=== PATIENT | male | born 1990 | race Caucasian/White ===

== ENCOUNTER 2019-09-15 08:17 | Outpatient (RCR) | payer SELFPAY ==
[~2019-09-15 08:17] MED LIST: CODE-54 PO; MECL25TA56 PO; MUPI22OI TP; NAPR-243 PO; SULF1TAB35 PO; TRM50T PO
== END 2019-12-14 | disposition home or self-care (01) ==
LOC: ONC 08:17
PROVIDERS: ATTEND Internal Medicine Hematology & Oncology
DX: I82.409 Acute embolism and thrombosis of unspecified deep veins of unspecified lower extremity (principal); M19.91 Primary osteoarthritis, unspecified site; F17.210 Nicotine dependence, cigarettes, uncomplicated
CPT/HCPCS: 99214

== ENCOUNTER 2020-07-04 11:59 | Inpatient (IN) | payer SELFPAY ==
[~2020-07-04] VITALS: Ht 175.3 cm; Wt 86.7 kg
--- NOTE | 2020-07-04 12:42 | ED Lower Extremity ---
General Chief Complaint: Lower Extremity Stated Complaint: LEG PAIN;LEG SWELLING Source: patient Exam Limitations: no limitations History of Present Illness Date Seen by Provider: Jul 04, 2020 Time Seen by Provider: 12:40 Initial Comments To ER with reports of right leg pain and swelling. He has a history of DVT first diagnosed last year, has been on Xarelto since. He ran out 5 days ago, the right leg pain began yesterday and was more intense this morning. No shortness of breath. Onset: yesterday Severity: moderate Pain/Injury Location: right leg Modifying Factors: Worse With Movement Allergies and Home Medications Allergies Coded Allergies: ibuprofen (Unverified Allergy, Unknown, 04/30/15) Patient Home Medication List Home Medication List Reviewed: Yes Review of Systems Constitutional: see HPI EENTM: see HPI Respiratory: no symptoms reported Cardiovascular: no symptoms reported Genitourinary: no symptoms reported Musculoskeletal: see HPI Skin: no symptoms reported Psychiatric/Neurological: No Symptoms Reported Past Diqqjsl-Vtemsw-Fctemo Hx Patient Social History Recent Foreign Travel: No Contact w/Someone Who Travel: No Immunizations Up To Date Tetanus Booster (TDap): Unknown Seasonal Allergies Seasonal Allergies: No Past Medical History Orthopedic Adverse Reaction/Blood Tranf: No Family Medical History No Pertinent Family Hx Physical Exam Vital Signs Vital Signs - First Documented 07/04/20 12:24 Temp 37.8 Pulse 92 Resp 18 B/P (MAP) 123/86 (98) Pulse Ox 98 O2 Delivery Room Air Capillary Refill : Height, Weight, BMI Height: 5'10" Weight: 190lbs. oz. 86.284783bs; BMI Method:Stated General Appearance: WD/WN, no apparent distress HEENT: PERRL/EOMI, normal ENT inspection Respiratory: no respiratory distress, no accessory muscle use Hips: bilateral hip non-tender, bilateral hip normal inspection, bilateral hip normal range of motion Legs: right leg pain, right leg swelling (+1 pitting edema right lower extremity. Strong dorsalis pedis pulse on the right foot), right leg other (bluish discoloration of the right light, albeit very slight. ) Knees: bilateral knee non-tender, bilateral knee normal inspection, bilateral knee normal range of motion, bilateral knee no evidence of injury Ankles: bilateral ankle non-tender, bilateral ankle normal inspection, bilateral ankle normal range of motion Feet: bilateral foot non-tender, bilateral foot normal inspection, bilateral foot normal range of motion Neurologic/Psychiatric: alert, normal mood/affect, oriented x 3 Skin: normal color, warm/dry Progress/Results/Core Measures Results/Orders Lab Results Laboratory Tests Test 07/04/20 12:33 Range/Units White Blood Count 11.7 H 4.3-11.0 10^3/uL Red Blood Count 4.87 4.35-5.85 10^6/uL Hemoglobin 15.4 13.3-17.7 G/DL Hematocrit 45 40-54 % Mean Corpuscular Volume 92 80-99 FL Mean Corpuscular Hemoglobin 32 25-34 PG Mean Corpuscular Hemoglobin Concent 34 32-36 G/DL Red Cell Distribution Width 13.5 10.0-14.5 % Platelet Count 107 L 130-400 10^3/uL Mean Platelet Volume 9.8 7.4-10.4 FL Neutrophils (%) (Auto) 75 42-75 % Lymphocytes (%) (Auto) 11 L 12-44 % Monocytes (%) (Auto) 13 H 0-12 % Eosinophils (%) (Auto) 1 0-10 % Basophils (%) (Auto) 0 0-10 % Neutrophils # (Auto) 8.8 H 1.8-7.8 X 10^3 Lymphocytes # (Auto) 1.3 1.0-4.0 X 10^3 Monocytes # (Auto) 1.5 H 0.0-1.0 X 10^3 Eosinophils # (Auto) 0.1 0.0-0.3 10^3/uL Basophils # (Auto) 0.0 0.0-0.1 10^3/uL Sodium Level 137 135-145 MMOL/L Potassium Level 3.8 3.6-5.0 MMOL/L Chloride Level 103 98-107 MMOL/L Carbon Dioxide Level 19 L 21-32 MMOL/L Anion Gap 15 H 5-14 MMOL/L Blood Urea Nitrogen 10 7-18 MG/DL Creatinine 1.12 0.60-1.30 MG/DL Estimat Glomerular Filtration Rate > 60 BUN/Creatinine Ratio 9 Glucose Level 109 H 70-105 MG/DL Calcium Level 9.0 8.5-10.1 MG/DL My Orders Orders - EVA KRUGER DRIVE AWAY DRIVER Cbc With Automated Diff (07/04/20 12:36) Us Venous Lower Ext Rt (07/04/20 12:36) Basic Metabolic Panel (07/04/20 12:36) Ed Iv/Invasive Line Start (07/04/20 12:36) Hydrocodone/Apap 5/325 Tablet (Lortab 5 (07/04/20 12:45) Ct Angio Chest W (07/04/20 13:45) Iohexol Injection (Omnipaque 350 Mg/Ml 1 (07/04/20 14:00) Received Contrast (Hold Metformin- Contr (07/04/20 14:00) Ns (Ivpb) (Sodium Chloride 0.9% Ivpb Bag (07/04/20 14:00) Heparin Drip 57066 Unit/500ml (Heparin (07/04/20 14:13) Heparin (Bolus Per Protocol) (Heparin (B (07/04/20 14:15) Medications Given in ED Current Medications Medications Dose Ordered Sig/Garret Route Start Time Stop Time Status Last Admin Dose Admin Acetaminophen/ Hydrocodone Bitart 1 tab ONCE ONCE PO 07/04/20 12:45 07/04/20 12:46 DC 07/04/20 12:51 1 TAB Heparin Sodium (Porcine) HEPARIN FULL PROTOC... ONCE ONCE IV 07/04/20 14:15 07/04/20 14:16 DC 07/04/20 14:44 5,000 UNIT Iohexol 75 ml ONCE ONCE IV 07/04/20 14:00 07/04/20 14:01 DC 07/04/20 14:18 77 ML Sodium Chloride 100 ml ONCE ONCE IV 07/04/20 14:00 07/04/20 14:01 DC 07/04/20 14:18 80 ML Vital Signs/I&O 07/04/20 12:24 Temp 37.8 Pulse 92 Resp 18 B/P (MAP) 123/86 (98) Pulse Ox 98 O2 Delivery Room Air Diagnostic Imaging Diagonstic Imaging: Ultrasound Comments NAME: CARIDAD TEJADA MED REC#: [id number] PT STATUS: REG ER : 1990 PHYSICIAN: EVA KRUGER DRIVE AWAY DRIVER ADMIT DATE: 07/04/20/ER Draft Date of Exam:07/04/20 US VENOUS LOWER EXT RT PROCEDURE: US right lower extremity venous. TECHNIQUE: Multiple real-time grayscale images were obtained over the right lower extremity in various projections. Additional spectral analysis and color Doppler duplex images were also obtained. INDICATION: Right leg pain and swelling. FINDINGS: There appears to be significant occlusive DVT throughout the right lower extremity deep venous system. Occlusive thrombus extends from the right common femoral vein to the calf. No fluid collection is identified. IMPRESSION: Extensive occlusive right lower extremity DVT. Dictated on workstation # [id number] Dict: 07/04/20 1356 Trans: 07/04/20 1402 6 [id number] Interpreted by: JOHAN ROSE MD Electronically signed by: Departure Communication (Admissions) 0836-decided to discuss the case with Dr. Alonso from vascular surgery at [facility] regarding whether or not thrombectomy/catheter directed thrombolysis was indicated given the degree of clotting and concern for possible phlegmasia cerulea dolens.. He states that at this point it is not phlegmasia cerulea dolens however he would recommend admission to the hospital for IV heparin for 3 days, if the leg fails to improve or worsens then would consider more aggressive treatment. After the 3 days if he improves we would switch back to his Xarelto. We are able to accomplish that here so I will admit him here. 1450-with Dr. Renee, we'll admit Impression Primary Impression: Right leg DVT Disposition: ADMITTED INPATIENT Condition: Stable Admissions Decision to Admit Reason: Admit from ER (General) Decision to Admit/Date: Jul 04, 2020 Time/Decision to Admit Time: 14:23 Departure-Patient Inst. Referrals: LYNNE JAMISON MD (PCP) Primary Care Physician EVA KRUGER APRN Jul 04, 2020 12:42
--- OUTSIDE RECORDS SUMMARY | 2020-07-04 12:42 | XMS REPORT ---
Author Author Mikey Casas Doctor Organization [facility] Address Unknown Phone Unavailable Care Team Providers Care Verifying Specialist Name Role Phone Migration, Doctor Unavailable Unavailable PROBLEMS Type Condition ICD9-CM Code ZER05-LB Code Onset Dates Condition S tatus SNOMED Code Problem Pain in joint, ankle and foot 719.47 Active 284073024 Problem Pain in joint, forearm 719.43 Active 040584508 Problem Contusion of unspecified site 924.9 Active [id number] ALLERGIES No Information ENCOUNTERS Encounter Location Date Diagnosis [facility] [address] [id number] [address] [place] [phone] Feb, [facility] [address] [id number] [address] [place] [phone] Feb, [facility] [address] [id number] [address] [place] [phone] Aug, [facility] [address] [id number] [address] [place] [phone] Aug, [facility] [address] [id number] [address] [place] [phone] Jul, [facility] [address] [id number] [address] [place] [phone] Jun, [facility] [address] [id number] [address] [place] [phone] Apr, [facility] [address] [id number] [address] [place] [phone] March, [facility] [address] [id number] [address] [place] [phone] Feb, [facility] [address] [id number] [address] [place] [phone] Jan, [facility] [address] [id number] [address] [place] [phone] Jan, [facility] [address] [id number] [address] [place] [phone] Nov, [facility] [address] [id number] [address] [place] [phone] Oct, [facility] [address] [id number] [address] [place] [phone] Oct, [facility] [address] [id number] [address] [place] [phone] Oct, [facility] [address] [id number] [address] [place] [phone] Oct, [facility] [address] [id number] [address] [place] [phone] Oct, [facility] [address] [id number] [address] [place] [phone] Oct, [facility] [address] [id number] [address] [place] [phone] March, IMMUNIZATIONS No Known Immunizations SOCIAL HISTORY Never Assessed REASON FOR VISIT EMR-[facility] [place] PLAN OF CARE VITAL SIGNS MEDICATIONS Unknown Medications RESULTS No Results PROCEDURES No Known procedures INSTRUCTIONS MEDICATIONS ADMINISTERED No Known Medications
--- OUTSIDE RECORDS SUMMARY | 2020-07-04 12:42 | XMS REPORT ---
Author Author Mikey JAMISON Organization [facility] Address [address] [place] [address] Care Team Providers Care Strike Out Machine Operator Name Role Phone LYNNE JAMISON Unavailable PROBLEMS Type Condition ICD9-CM Code KYT64-IC Code Onset Dates Condition S tatus SNOMED Code Problem Mixed bipolar II disorder F31.81 Acti ve 134059565 Problem Acute deep vein thrombosis of left popliteal vein I82.432 Active [id number] Problem Contusion of unspecified site 924.9 Active 681131904 Problem Pain in joint, ankle and foot 719.47 Active 446538448 Problem Pain in joint, forearm 719.43 Active 595305403 Problem Mood disorder F39 Active 254335 05 ALLERGIES No Information ENCOUNTERS Encounter Location Date Diagnosis [facility] [address] [facility] [id number] [address] [place] [phone] Apr, [facility] [address] [facility] [id number] [address] [place] [phone] Jan, [facility] [address] [facility] [id number] [address] [place] [phone] Jan, Mixed bipolar II disorder F3 1.81 and Other custodial (current) drug therapy Z79.899 [facility] [address] [facility] [id number] [address] [place] [phone] Nov, [facility] [address] [facility] [id number] [address] [place] [phone] Nov, [facility] [address] [facility] [id number] [address] [place] [phone] Oct, Mixed bipolar II disorder F3 1.81 [facility] [address] [facility] [id number] [address] [place] [phone] Oct, [facility] [address] [id number] [address] [place] [phone] Sep, Mixed bipolar II disorder F3 1.81 and Other custodial (current) drug therapy Z79.899 [facility] [address] [id number] [address] [place] [phone] Sep, [facility] [address] [id number] [address] [place] [phone] Aug, [facility] [address] [id number] [address] [place] [phone] Aug, Acute deep vein thrombosis o f left popliteal vein I82.432 [facility] [address] [id number] [address] [place] [phone] Aug, [facility] [address] [id number] [address] [place] [phone] Aug, Petechiae R23.3 [facility] [address] [id number] [address] [place] [phone] Aug, [facility] [address] [id number] [address] [place] [phone] Aug, [facility] [address] [id number] [address] [place] [phone] Aug, [facility] [address] [id number] [address] [place] [phone] Aug, Pain of left calf M79.662 an d Acute deep vein thrombosis (DVT) of popliteal vein of left lower extremity I82.432 [facility] [address] [id number] [address] [place] [phone] Jul, Mixed bipolar II disorder F3 1.81 [facility] [address] [id number] [address] [place] [phone] Jun, Mixed bipolar II disorder F3 1.81 [facility] [address] [id number] [address] [place] [phone] Jun, Mixed bipolar II disorder F3 1.81 [facility] [address] [id number] [address] [place] [phone] May, Mixed bipolar II disorder F3 1.81 [facility] [address] [id number] [address] [place] [phone] May, Mixed bipolar II disorder F3 1.81 [facility] [address] [id number] [address] [place] [phone] Apr, Mixed bipolar II disorder F3 1.81 [facility] [address] [id number] [address] [place] [phone] Apr, Mood disorder F39 [facility] [address] [id number] [address] [place] [phone] Feb, [facility] [address] [id number] [address] [place] [phone] Feb, [facility] [address] [id number] [address] [place] [phone] Aug, [facility] [address] [id number] [address] [place] [phone] Aug, [facility] [address] [id number] [address] [place] [phone] Jul, [facility] [address] [id number] [address] [place] [phone] Jun, [facility] [address] [id number] [address] [place] [phone] Apr, [facility] [address] [id number] [address] [place] [phone] March, [facility] [address] [id number] [address] [place] [phone] Feb, [facility] [address] [id number] [address] [place] [phone] Jan, [facility] [address] [id number] [address] [place] [phone] 14 Jan, 2013 [facility] [address] [id number] [address] [place] [phone] Nov, [facility] [address] [id number] [address] [place] [phone] Oct, [facility] [address] [id number] [address] [place] [phone] Oct, [facility] [address] [id number] [address] [place] [phone] Oct, [facility] [address] [id number] [address] [place] [phone] Oct, [facility] [address] [id number] [address] [place] [phone] Oct, [facility] [address] [id number] [address] [place] [phone] Oct, [facility] [address] [id number] [address] [place] [phone] March, IMMUNIZATIONS No Known Immunizations SOCIAL HISTORY Never Assessed REASON FOR VISIT PLAN OF CARE VITAL SIGNS Height 69 in 2014-09-28 Weight 171 lbs 2014-09-28 Temperature 97 degrees Fahrenheit 2014-09-28 Heart Rate 88 bpm 2014-09-28 Respiratory Rate 16 2014-09-28 Blood pressure systolic 124 mmHg 2014-09-28 Blood pressure diastolic 80 mmHg 2014-09-28 MEDICATIONS Unknown Medications RESULTS No Results PROCEDURES Procedure Date Ordered Result Body Site X-RAY EXAM OF HAND Sep 28, 2014 X-RAY EXAM OF WRIST Sep 28, 2014 INSTRUCTIONS MEDICATIONS ADMINISTERED No Known Medications MEDICAL (GENERAL) HISTORY Type Description Date Medical History Mood disorder Surgical History RT wrist ( cyst removal) Surgical History teeth removed
--- OUTSIDE RECORDS SUMMARY | 2020-07-04 12:42 | XMS REPORT ---
Author Author Mikey Casas Doctor Organization [facility] Address Unknown Phone Unavailable Care Team Providers Care Final Block Press Operator Name Role Phone Migration, Doctor Unavailable Unavailable PROBLEMS Type Condition ICD9-CM Code [id number] Code Onset Dates Condition S tatus SNOMED Code Problem Mixed bipolar II disorder F31.81 Acti ve 247781547 Problem Acute deep vein thrombosis of left popliteal vein I82.432 Active [id number] Problem Contusion of unspecified site 924.9 Active 964741650 Problem Pain in joint, ankle and foot 719.47 Active 974094513 Problem Pain in joint, forearm 719.43 Active 209674081 Problem Mood disorder F39 Active 296365 05 ALLERGIES No Information ENCOUNTERS Encounter Location Date Diagnosis [facility] [address] [facility] [id number] [address] [place] [phone] Apr, [facility] [address] [facility] [id number] [address] [place] [phone] Jan, [facility] [address] [facility] [id number] [address] [place] [phone] Jan, Mixed bipolar II disorder F3 1.81 and Other group home (current) drug therapy Z79.899 [facility] [address] [facility] [id number] [address] [place] [phone] Nov, [facility] [address] [facility] [id number] [address] [place] [phone] Nov, [facility] [address] [facility] [id number] [address] [place] [phone] Oct, Mixed bipolar II disorder F3 1.81 [facility] [address] [facility] [id number] [address] [place] [phone] Oct, [facility] [address] [facility] [id number] [address] [place] [phone] Sep, Mixed bipolar II disorder F3 1.81 and 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 therapy Z79.899 [facility] [address] [id number] [address] [place] [phone] Sep, [facility] [address] [id number] [address] [place] [phone] Aug, [facility] [address] [id number] [address] [place] [phone] Aug, Acute deep vein thrombosis o f left popliteal vein I82.432 [facility] [address] [id number] [address] [place] [phone] Aug, [facility] [address] [id number] [address] [place] [phone] Aug, Petechiae R23.3 [facility] [address] [id number] [address] [place] [phone] Aug, [facility] [address] [id number] [address] [place] [phone] Aug, [facility] [address] [id number] [address] [place] [phone] Aug, [facility] [address] [id number] [address] [place] [phone] Aug, Pain of left calf M79.662 an d Acute deep vein thrombosis (DVT) of popliteal vein of left lower extremity I82.432 [facility] [address] [id number] [address] [place] [phone] Jul, Mixed bipolar II disorder F3 1.81 [facility] [address] [id number] [address] [place] [phone] Jun, Mixed bipolar II disorder F3 1.81 [facility] [address] [id number] [address] [place] [phone] Jun, Mixed bipolar II disorder F3 1.81 [facility] [address] [id number] [address] [place] [phone] May, Mixed bipolar II disorder F3 1.81 [facility] [address] [id number] [address] [place] [address], [place] [phone] May, Mixed bipolar II disorder F3 1.81 [facility] [address] [id number] [address] [place] [address], [place] [address] Apr, Mixed bipolar II disorder F3 1.81 [facility] [address] [id number] [address] [place] [address], [place] [address] Apr, Mood disorder F39 [facility] [address] [id number] [address] [place] [address], [place] [phone] Feb, [facility] [address] [id number] [address] [place] [phone] Feb, [facility] [address] [id number] [address] [place] [phone] Aug, [facility] [address] [id number] [address] [place] [phone] Aug, [facility] [address] [id number] [address] [place] [phone] Jul, [facility] [address] [id number] [address] [place] [phone] Jun, [facility] [address] [id number] [address] [place] [phone] Apr, [facility] [address] [id number] [address] [place] [phone] March, [facility] [address] [id number] [address] [place] [phone] Feb, [facility] [address] [id number] [address] [place] [phone] Jan, [facility] [address] [id number] [address] [place] [phone] Jan, [facility] [address] [id number] [address] [place] [phone] Nov, [facility] [address] [id number] [address] [place] [phone] Oct, [facility] [address] [id number] [address] [place] [phone] Oct, [facility] [address] [id number] [address] [place] [phone] Oct, [facility] [address] [id number] [address] [place] [phone] Oct, [facility] [address] [id number] [address] [place] [phone] Oct, [facility] [address] [facility] [id number] [address] [place] [phone] Oct, [facility] [address] [id number] [address] [place] [phone] March, IMMUNIZATIONS No Known Immunizations SOCIAL HISTORY Never Assessed REASON FOR VISIT PLAN OF CARE VITAL SIGNS MEDICATIONS Unknown Medications RESULTS No Results PROCEDURES No Known procedures INSTRUCTIONS MEDICATIONS ADMINISTERED No Known Medications MEDICAL (GENERAL) HISTORY Type Description Date Medical History Mood disorder Surgical History RT wrist ( cyst removal) Surgical History teeth removed
--- OUTSIDE RECORDS SUMMARY | 2020-07-04 12:42 | XMS REPORT ---
Author Author Mikey Casas Doctor Organization [facility] Address Unknown Phone Unavailable Care Team Providers Care Supervisor Rice Milling Name Role Phone Migration, Doctor Unavailable Unavailable PROBLEMS Type Condition ICD9-CM Code NTT82-NU Code Onset Dates Condition S tatus SNOMED Code Problem Pain in joint, ankle and foot 719.47 Active 474629546 Problem Pain in joint, forearm 719.43 Active 913250442 Problem Contusion of unspecified site 924.9 Active 081648726 ALLERGIES No Information ENCOUNTERS Encounter Location Date Diagnosis [facility] [address] [id number] [address] [place] [phone] Feb, [facility] [address] [id number] [address] [place] [phone] Feb, [facility] [address] [id number] [address] [place] [phone] Aug, [facility] [address] [id number] [address] [place] [phone] Aug, [facility] [address] [id number] [address] [place] [phone] Jul, [facility] [address] [id number] [address] [place] [phone] Jun, [facility] [address] [id number] [address] [place] [phone] Apr, [facility] [address] [id number] [address] [place] [phone] March, [facility] [address] [id number] [address] [place] [phone] Feb, [facility] [address] [id number] [address] [place] [phone] Jan, [facility] [address] [id number] [address] [place] [phone] Jan, [facility] [address] [id number] [address] [place] [phone] Nov, [facility] [address] [id number] [address] [place] [phone] Oct, [facility] [address] [id number] [address] [place] [phone] Oct, [facility] [address] [id number] [address] [place] [phone] Oct, [facility] [address] [id number] [address] [place] [phone] Oct, [facility] [address] [id number] [address] [place] [phone] Oct, [facility] [address] [id number] [address] [place] [phone] Oct, [facility] [address] [id number] [address] [place] [phone] March, IMMUNIZATIONS No Known Immunizations SOCIAL HISTORY Never Assessed REASON FOR VISIT EMR-[facility] [place] PLAN OF CARE VITAL SIGNS MEDICATIONS Unknown Medications RESULTS No Results PROCEDURES No Known procedures INSTRUCTIONS MEDICATIONS ADMINISTERED No Known Medications
--- OUTSIDE RECORDS SUMMARY | 2020-07-04 12:42 | XMS REPORT ---
Author Author Mikey Casas Doctor Organization [facility] Address Unknown Phone Unavailable Care Team Providers Care Legal Billing Clerk Name Role Phone Migration, Doctor Unavailable Unavailable PROBLEMS Type Condition ICD9-CM Code SQT68-LO Code Onset Dates Condition S tatus SNOMED Code Problem Pain in joint, forearm 719.43 Active 746635061 Problem Mood disorder F39 Active 670544 05 Problem Contusion of unspecified site 924.9 Active 143697446 Problem Pain in joint, ankle and foot 719.47 Active 028524871 ALLERGIES Substance Reaction Event Type Date Status Ibuprofen Unknown Drug Allergy Feb, Active ENCOUNTERS Encounter Location Date Diagnosis [facility] [address] [facility] [id number] [address] [place] [phone] May, [facility] [address] [facility] [id number] [address] [place] [phone] Apr, Mixed bipolar II disorder F3 1.81 [facility] [address] [facility] [id number] [address] [place] [phone] Apr, Mood disorder F39 [facility] [address] [facility] [id number] [address] [place] [phone] Feb, [facility] [address] [facility] [id number] [address] [place] [phone] Feb, [facility] [address] [facility] [id number] [address] [place] [phone] Aug, [facility] [address] [facility] [id number] [address] [place] [phone] Aug, [facility] [address] [facility] [id number] [address] [place] [phone] Jul, [facility] [address] [facility] [id number] [address] [place] [phone] Jun, [facility] [address] [id number] [address] [place] [phone] Apr, [facility] [address] [id number] [address] [place] [phone] March, [facility] [address] [id number] [address] [place] [phone] Feb, [facility] [address] [id number] [address] [place] [phone] Jan, [facility] [address] [id number] [address] [place] [phone] Jan, [facility] [address] [id number] [address] [place] [phone] Nov, [facility] [address] [id number] [address] [place] [phone] Oct, [facility] [address] [id number] [address] [place] [phone] Oct, [facility] [address] [id number] [address] [place] [phone] Oct, [facility] [address] [id number] [address] [place] [phone] Oct, [facility] [address] [id number] [address] [place] [phone] Oct, [facility] [address] [id number] [address] [place] [phone] Oct, [facility] [address] [id number] [address] [place] [phone] March, IMMUNIZATIONS No Known Immunizations SOCIAL HISTORY Never Assessed REASON FOR VISIT EMR-[facility] [place] PLAN OF CARE VITAL SIGNS MEDICATIONS Unknown Medications RESULTS No Results PROCEDURES No Known procedures INSTRUCTIONS MEDICATIONS ADMINISTERED No Known Medications MEDICAL (GENERAL) HISTORY Type Description Date Medical History Mood disorder Surgical History RT wrist ( cyst removal) Surgical History teeth removed
--- OUTSIDE RECORDS SUMMARY | 2020-07-04 12:42 | XMS REPORT ---
Author Author Mikey Casas Doctor Organization [facility] Address Unknown Phone Unavailable Care Team Providers Care Presser Cotton Ginning Name Role Phone Migration, Doctor Unavailable Unavailable PROBLEMS Type Condition ICD9-CM Code TCV97-LW Code Onset Dates Condition S tatus SNOMED Code Problem Mixed bipolar II disorder F31.81 Acti ve 194268363 Problem Acute deep vein thrombosis of left popliteal vein I82.432 Active 375401109909496 Problem Contusion of unspecified site 924.9 Active 155344321 Problem Pain in joint, ankle and foot 719.47 Active 516319761 Problem Pain in joint, forearm 719.43 Active 146903781 Problem Mood disorder F39 Active 663513 05 ALLERGIES No Information ENCOUNTERS Encounter Location Date Diagnosis [facility] [address] [id number] [address] [place] [phone] Jul, [facility] [address] [facility] [id number] [address] [place] [phone] Apr, [facility] [address] [id number] [address] [place] [phone] Apr, [facility] [address] [facility] [id number] [address] [place] [phone] 08 Apr, 2020 Mixed bipolar II disorder F3 1.81 and Other tank terminal gauger (current) drug therapy Z79.899 [facility] [address] [id number] [address] [place] [phone] Jan, [facility] [address] [facility] [id number] [address] [place] [phone] 02 Jan, 2020 Mixed bipolar II disorder F3 1.81 and Other tank terminal gauger (current) drug therapy Z79.899 [facility] [address] [facility] [id number] [address] [place] [phone] Nov, [facility] [address] [id number] [address] [place] [phone] Nov, [facility] [address] [id number] [address] [place] [phone] Oct, Mixed bipolar II disorder F3 1.81 [facility] [address] [id number] [address] [place] [phone] Oct, [facility] [address] [id number] [address] [place] [phone] Sep, Mixed bipolar II disorder F3 1.81 and Other halfway (current) drug therapy Z79.899 [facility] [address] [id number] [address] [place] [phone] Sep, [facility] [address] [id number] [address] [place] [phone] Aug, [facility] [address] [id number] [address] [place] [phone] Aug, Acute deep vein thrombosis o f left popliteal vein I82.432 [facility] [address] [id number] [address] [place] [phone] Aug, [facility] [address] [id number] [address] [place] [phone] Aug, Petechiae R23.3 [facility] [address] [id number] [address] [place] [phone] Aug, [facility] [address] [id number] [address] [place] [phone] Aug, [facility] [address] [id number] [address] [place] [phone] Aug, [facility] [address] [id number] [address] [place] [phone] Aug, Pain of left calf M79.662 an d Acute deep vein thrombosis (DVT) of popliteal vein of left lower extremity I82.432 [facility] [address] [id number] [address] [place] [phone] Jul, Mixed bipolar II disorder F3 1.81 [facility] [address] [id number] [address] [place] [phone] Jun, Mixed bipolar II disorder F3 1.81 [facility] [address] [id number] [address] [place] [phone] Jun, Mixed bipolar II disorder F3 1.[address] [facility] [address] [id number] [address] [place] [phone] May, Mixed bipolar II disorder F3 1.81 [facility] [address] [id number] [address] [place] [phone] May, Mixed bipolar II disorder F3 1.81 [facility] [address] [id number] [address] [place] [phone] Apr, Mixed bipolar II disorder F3 1.81 [facility] [address] [id number] [address] [place] [phone] Apr, Mood disorder F39 [facility] [address] [id number] [address] [place] [phone] Feb, [facility] [address] [id number] [address] [place] [phone] Feb, [facility] [address] [id number] [address] [place] [phone] Aug, [facility] [address] [id number] [address] [place] [phone] Aug, [facility] [address] [id number] [address] [place] [phone] Jul, [facility] [address] [id number] [address] [place] [phone] Jun, [facility] [address] [id number] [address] [place] [phone] Apr, [facility] [address] [id number] [address] [place] [phone] March, [facility] [address] [id number] [address] [place] [phone] Feb, [facility] [address] [id number] [address] [place] [phone] Jan, [facility] [address] [id number] [address] [place] [phone] Jan, [facility] [address] [id number] [address] [place] [phone] Nov, [facility] [address] [id number] [address] [place] [phone] Oct, [facility] [address] [id number] [address] [place] [phone] Oct, [facility] [address] [id number] [address] [place] [phone] Oct, [facility] [address] [id number] [address] [place] [phone] Oct, [facility] [address] [id number] [address] [place] [phone] Oct, [facility] [address] [id number] [address] [place] [phone] Oct, [facility] [address] [id number] [address] [place] [phone] March, IMMUNIZATIONS No Known Immunizations SOCIAL HISTORY Never Assessed REASON FOR VISIT PLAN OF CARE VITAL SIGNS MEDICATIONS Unknown Medications RESULTS No Results PROCEDURES No Known procedures INSTRUCTIONS MEDICATIONS ADMINISTERED No Known Medications MEDICAL (GENERAL) HISTORY Type Description Date Medical History Mood disorder Surgical History RT wrist ( cyst removal) Surgical History teeth removed
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
--- OUTSIDE RECORDS SUMMARY | 2020-07-04 12:42 | XMS REPORT ---
Author Author Mikey Casas Doctor Organization [facility] Address Unknown Phone Unavailable Care Team Providers Care Talent Consultant Name Role Phone Migration, Doctor Unavailable Unavailable PROBLEMS Type Condition ICD9-CM Code SDC43-NW Code Onset Dates Condition S tatus SNOMED Code Problem Mixed bipolar II disorder F31.81 Acti ve 126996142 Problem Acute deep vein thrombosis of left popliteal vein I82.432 Active 183321933285915 Problem Contusion of unspecified site 924.9 Active 580098959 Problem Pain in joint, ankle and foot 719.47 Active 511069452 Problem Pain in joint, forearm 719.43 Active 104544247 Problem Mood disorder F39 Active 566347 05 ALLERGIES No Information ENCOUNTERS Encounter Location Date Diagnosis [facility] [address] [id number] [address] [place] [phone] 09 Jul, 2020 [facility] [address] [id number] [address] [place] [phone] Apr, [facility] [address] [id number] [address] [place] [phone] Apr, [facility] [address] [id number] [address] [place] [phone] 08 Apr, 2020 Mixed bipolar II disorder F3 1.81 and Other dedicated intermodal truck driver (current) drug therapy Z79.899 [facility] [address] [id number] [address] [place] [phone] Jan, [facility] [address] [id number] [address] [place] [phone] 02 Jan, 2020 Mixed bipolar II disorder F3 1.81 and Other dedicated intermodal truck driver (current) drug therapy Z79.899 [facility] [address] [id number] [address] [place] [phone] Nov, [facility] [address] [id number] [address] [place] [address] Nov, [facility] [address] [id number] [address] [place] [phone] Oct, Mixed bipolar II disorder F3 1.81 [facility] [address] [id number] [address] [place] [address] Oct, [facility] [address] [id number] [address] [place] [phone] Sep, Mixed bipolar II disorder F3 1.81 and Other snf (current) drug therapy Z79.899 [facility] [address] [id number] [address] [place] [address] Sep, [facility] [address] [id number] [address] [place] [phone] Aug, [facility] [address] [id number] [address] [place] [address] Aug, Acute deep vein thrombosis o f left popliteal vein I82.432 [facility] [address] [id number] [address] [place] [address] Aug, [facility] [address] [id number] [address] [place] [address] Aug, Petechiae R23.3 [facility] [address] [id number] [address] [place] [phone] Aug, [facility] [address] [id number] [address] [place] [phone] Aug, [facility] [address] [id number] [address] [place] [phone] Aug, [facility] [address] [id number] [address] [place] [address] Aug, Pain of left calf M79.662 an d Acute deep vein thrombosis (DVT) of popliteal vein of left lower extremity I82.432 [facility] [address] [id number] [address] [place] [address] Jul, Mixed bipolar II disorder F3 1.81 [facility] [address] [id number] [address] [place] [id number] Jun, Mixed bipolar II disorder F3 1.81 [facility] [address] [id number] [address] [place] [phone] Jun, Mixed bipolar II disorder F3 1.81 [facility] [address] [id number] [address] [place] [address] May, Mixed bipolar II disorder F3 1.81 [facility] [address] [id number] [address] [place] [phone] May, Mixed bipolar II disorder F3 1.81 [facility] [address] [id number] [address] [place] [address] Apr, Mixed bipolar II disorder F3 1.81 [facility] [address] [id number] [address] [place] [address] Apr, Mood disorder F39 [facility] [address] [id number] [address] [place] [phone] Feb, [facility] [address] [id number] [address] [place] [phone] Feb, [facility] [address] [id number] [address] [place] [phone] Aug, [facility] [address] [id number] [address] [place] [phone] Aug, [facility] [address] [id number] [address] [place] [phone] Jul, [facility] [address] [id number] [address] [place] [phone] Jun, [facility] [address] [id number] [address] [place] [phone] Apr, [facility] [address] [id number] [address] [place] [id number] March, [facility] [address] [id number] [address] [place] [phone] Feb, [facility] [address] [id number] [address] [place] [phone] Jan, [facility] [address] [id number] [address] [place] [phone] Jan, [facility] [address] [id number] [address] [place] [phone] Nov, [facility] [address] [id number] [address] [place] [phone] Oct, [facility] [address] [id number] [address] [place] [phone] Oct, [facility] [address] [id number] [address] [place] [phone] Oct, [facility] [address] [id number] [address] [place] [phone] Oct, [facility] [address] [id number] [address] [place] [address] Oct, [facility] [address] [id number] [address] [place] [phone] Oct, [facility] [address] [id number] [address] [place] [address] March, IMMUNIZATIONS No Known Immunizations SOCIAL HISTORY Never Assessed REASON FOR VISIT PLAN OF CARE VITAL SIGNS MEDICATIONS Unknown Medications RESULTS No Results PROCEDURES No Known procedures INSTRUCTIONS MEDICATIONS ADMINISTERED No Known Medications MEDICAL (GENERAL) HISTORY Type Description Date Medical History Mood disorder Surgical History RT wrist ( cyst removal) Surgical History teeth removed
--- OUTSIDE RECORDS SUMMARY | 2020-07-04 12:42 | XMS REPORT ---
Author Author Mikey Casas Doctor Organization [facility] Address Unknown Phone Unavailable Care Team Providers Care Teacher Specialist Name Role Phone Migration, Doctor Unavailable Unavailable PROBLEMS Type Condition ICD9-CM Code [id number] Code Onset Dates Condition S tatus SNOMED Code Problem Mixed bipolar II disorder F31.81 Acti ve 446359101 Problem Acute deep vein thrombosis of left popliteal vein I82.432 Active 177034214938507 Problem Contusion of unspecified site 924.9 Active 630868167 Problem Pain in joint, ankle and foot 719.47 Active 574306001 Problem Pain in joint, forearm 719.43 Active 847315400 Problem Mood disorder F39 Active 798949 05 ALLERGIES No Information ENCOUNTERS Encounter Location Date Diagnosis [facility] [address] [facility] [id number] [address] [place] [phone] Apr, [facility] [address] [facility] [id number] [address] [place] [id number] Jan, [facility] [address] [facility] [id number] [address] [place] [phone] Jan, Mixed bipolar II disorder F3 1.81 and Other prison (current) drug therapy Z79.899 [facility] [address] [facility] [id number] [address] [place] [phone] Nov, [facility] [address] [facility] [id number] [address] [place] [phone] Nov, [facility] [address] [facility] [id number] [address] [place] [phone] Oct, Mixed bipolar II disorder F3 1.81 [facility] [address] [facility] [id number] [address] [place] [address] Oct, [facility] [address] [facility] [id number] [address] [place] [phone] Sep, Mixed bipolar II disorder F3 1.81 and 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 [facility] [address] [id number] [address] [place] [address] Sep, [facility] [address] [id number] [address] [place] [phone] Aug, [facility] [address] [id number] [address] [place] [address] Aug, Acute deep vein thrombosis o f left popliteal vein I82.432 [facility] [address] [id number] [address] [place] [phone] Aug, [facility] [address] [id number] [address] [place] [address] Aug, Petechiae R23.3 [facility] [address] [id number] [address] [place] [address] Aug, [facility] [address] [id number] [address] [place] [address] Aug, [facility] [address] [id number] [address] [place] [phone] Aug, [facility] [address] [id number] [address] [place] [address] Aug, Pain of left calf M79.662 an d Acute deep vein thrombosis (DVT) of popliteal vein of left lower extremity I82.432 [facility] [address] [id number] [address] [place] [address] Jul, Mixed bipolar II disorder F3 1.81 [facility] [address] [id number] [address] [place] [address] Jun, Mixed bipolar II disorder F3 1.81 [facility] [address] [id number] [address] [place] [address] Jun, Mixed bipolar II disorder F3 1.81 [facility] [address] [id number] [address] [place] [address] May, Mixed bipolar II disorder F3 1.81 [facility] [address] [id number] [address] [place] [address], [place] [address] May, Mixed bipolar II disorder F3 1.81 [facility] [address] [id number] [address] [place] [address], [place] [address] Apr, Mixed bipolar II disorder F3 1.81 [facility] [address] [id number] [address] [place] [address], [place] [address] Apr, Mood disorder F39 [facility] [address] [id number] [address] [place] [address], [place] [address] Feb, [facility] [address] [id number] [address] [place] [phone] Feb, [facility] [address] [id number] [address] [place] [address] Aug, [facility] [address] [id number] [address] [place] [phone] Aug, [facility] [address] [id number] [address] [place] [phone] Jul, [facility] [address] [id number] [address] [place] [address] Jun, [facility] [address] [id number] [address] [place] [address] Apr, [facility] [address] [id number] [address] [place] [address] March, [facility] [address] [id number] [address] [place] [address] Feb, [facility] [address] [id number] [address] [place] [address] Jan, [facility] [address] [id number] [address] [place] [address] Jan, [facility] [address] [id number] [address] [place] [phone] Nov, [facility] [address] [id number] [address] [place] [address] Oct, [facility] [address] [id number] [address] [place] [address] Oct, [facility] [address] [id number] [address] [place] [phone] Oct, [facility] [address] [id number] [address] [place] [address] Oct, [facility] [address] [id number] [address] [place] [id number] Oct, [facility] [address] [id number] [address] [place] [phone] Oct, [facility] [address] [id number] [address] [place] [address] March, IMMUNIZATIONS No Known Immunizations SOCIAL HISTORY Never Assessed REASON FOR VISIT PLAN OF CARE VITAL SIGNS Blood pressure systolic 120 mmHg 2013-08-04 Blood pressure diastolic 64 mmHg 2013-08-04 MEDICATIONS Unknown Medications RESULTS No Results PROCEDURES No Known procedures INSTRUCTIONS MEDICATIONS ADMINISTERED No Known Medications MEDICAL (GENERAL) HISTORY Type Description Date Medical History Mood disorder Surgical History RT wrist ( cyst removal) Surgical History teeth removed
--- OUTSIDE RECORDS SUMMARY | 2020-07-04 12:42 | XMS REPORT ---
Author Author Mikey Casas Doctor Organization [facility] Address Unknown Phone Unavailable Care Team Providers Care Reference Assistant Name Role Phone Migration, Doctor Unavailable Unavailable PROBLEMS Type Condition ICD9-CM Code UPZ01-GQ Code Onset Dates Condition S tatus SNOMED Code Problem Pain in joint, ankle and foot 719.47 Active 331805874 Problem Pain in joint, forearm 719.43 Active 123863327 Problem Contusion of unspecified site 924.9 Active 798326170 ALLERGIES No Information ENCOUNTERS Encounter Location Date Diagnosis [facility] [address] [id number] [address] [place] [phone] Feb, [facility] [address] [id number] [address] [place] [phone] Feb, [facility] [address] [id number] [address] [place] [phone] Aug, [facility] [address] [id number] [address] [place] [phone] Aug, [facility] [address] [id number] [address] [place] [phone] Jul, [facility] [address] [id number] [address] [place] [phone] Jun, [facility] [address] [id number] [address] [place] [phone] Apr, [facility] [address] [id number] [address] [place] [phone] March, [facility] [address] [id number] [address] [place] [phone] Feb, [facility] [address] [id number] [address] [place] [phone] Jan, [facility] [address] [id number] [address] [place] [phone] Jan, [facility] [address] [id number] [address] [place] [phone] Nov, [facility] [address] [id number] [address] [place] [phone] Oct, [facility] [address] [id number] [address] [place] [phone] Oct, [facility] [address] [id number] [address] [place] [phone] Oct, [facility] [address] [id number] [address] [place] [phone] Oct, [facility] [address] [id number] [address] [place] [phone] Oct, [facility] [address] [id number] [address] [place] [phone] Oct, [facility] [address] [id number] [address] [place] [phone] March, IMMUNIZATIONS No Known Immunizations SOCIAL HISTORY Never Assessed REASON FOR VISIT EMR[place] [place]AN OF CARE VITAL SIGNS MEDICATIONS Unknown Medications RESULTS No Results PROCEDURES No Known procedures INSTRUCTIONS MEDICATIONS ADMINISTERED No Known Medications
--- OUTSIDE RECORDS SUMMARY | 2020-07-04 12:42 | XMS REPORT | Continuity of Care Document ---
Author Organization Unknown Address Unknown Phone Unavailable Allergies Active Description Code Type Severity Reaction Onset Reported/Identified Relationship to Patient Clinical Status Yes ibuprofen Drug Allergy 11/29/2012 Yes ibuprofen Drug Allergy N/A N/A 11/29/2012 Yes ibuprofen [id number] Drug Allergy Unknown N/A 04/30/2015 Medications There is no data. Problems Date Dx Coded Attending Type Code Diagnosis Diagnosed By 04/10/2009 682.9 CELL ULITIS AND ABSCESS OF UNSPECIFIED SITES 04/10/2009 TED HERNÁNDEZ APRN 68 2.9 CELLULITIS AND ABSCESS OF UNSPECIFIED SITES 04/10/2009 LEIF COLEMAN DO 682.9 CELLULITIS AND ABSCESS OF UNSPECIFIED SITES 04/10/2009 682.9 CELL ULITIS AND ABSCESS OF UNSPECIFIED SITES 04/10/2009 682.9 CELL ULITIS AND ABSCESS OF UNSPECIFIED SITES 04/10/2009 LYNNE JAMISON MD 682.9 CELLULITIS AND ABSCESS OF UNSPECIFIED SITES 06/15/2009 296.32 MO DEPRESSIVE RECURRENT MODERATE 06/15/2009 300.00 AN ANXIETY UNSPEC 06/15/2009 TED HERNÁNDEZ APRN 296.32 MO DEPRESSIVE RECURRENT MODERATE 06/15/2009 TED HERNÁNDEZ APRN 300.00 AN ANXIETY UNSPEC 06/15/2009 LEIF COLEMAN DO 296.32 MO DEPRESSIVE RECURRENT MODERATE 06/15/2009 LEIF COLEMAN DO 300.00 AN ANXIETY UNSPEC 06/15/2009 296.32 MO DEPRESSIVE RECURRENT MODERATE 06/15/2009 300.00 AN ANXIETY UNSPEC 06/15/2009 296.32 MO DEPRESSIVE RECURRENT MODERATE 06/15/2009 300.00 AN ANXIETY UNSPEC 06/15/2009 LYNNE JAMISON MD 296.3 2 MO DEPRESSIVE RECURRENT MODERATE 06/15/2009 LYNNE JAMISON MD 300.0 0 AN ANXIETY UNSPEC 07/19/2009 301.9 PD P ERS DIS NOS 07/19/2009 TED HERNÁNDEZ APRN 30 1.9 PD PERS DIS NOS 07/19/2009 LEIF COLEMAN DO 301.9 PD PERS DIS NOS 07/19/2009 301.9 PD P ERS DIS NOS 07/19/2009 301.9 PD P ERS DIS NOS 07/19/2009 LYNNE JAMISON MD 301.9 PD PERS DIS NOS 07/29/2010 Ot 780.4 04/18/[address] PAIN NOS 04/18/2011 Ot 786.52 ANNE NFUL RESPIRATION 11/29/2012 TED HERNÁNDEZ APRN 719.43 PAIN IN JOINT INVOLVING FOREARM 11/29/2012 LEIF COLEMAN DO 719.43 PAIN IN JOINT INVOLVING FOREARM 11/29/2012 719.43 ANNE N IN JOINT INVOLVING FOREARM 11/29/2012 719.43 ANNE N IN JOINT INVOLVING FOREARM 11/29/2012 LYNNE JAMISON MD 719.4 3 PAIN IN JOINT INVOLVING FOREARM 07/29/2013 719.47 ANNE N IN JOINT INVOLVING ANKLE AND FOOT 07/29/2013 719.47 ANNE N IN JOINT INVOLVING ANKLE AND FOOT 07/29/2013 LYNNE JAMISON MD 719.4 7 PAIN IN JOINT INVOLVING ANKLE AND FOOT 09/28/2014 LYNNE JAMISON MD 924.9 CONTUSION OF UNSPECIFIED SITE 04/30/2015 Ot 727.43 05/01/2015 KIMBERLI QUINTERO DO Ot 305.00 ALCOHOL ABUSE-UNSPEC 05/01/2015 KIMBERLI QUINTERO DO Ot 719.41 JOINT PAIN-SHLDER 05/01/2015 KIMBERLI QUINTERO DO Ot 810.02 FX CLAVICLE SHAFT-CLOSED 05/01/2015 KIMBERLI QUINTERO DO Ot 847.0 SPRAIN OF NECK 05/01/2015 KIMBERLI QUINTERO DO Ot 919.0 ABRASION NEC 05/01/2015 KIMBERLI QUINTERO DO Ot 920 CONTUSION FACE/SCALP/NCK 05/01/2015 KIMBERLI QUINTERO DO Ot E000.8 OTHER EXTERNAL CAUSE STATUS 05/01/2015 KIMBERLI QUINTERO DO Ot 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 03/23/2016 Ot 727.43 RIAZ GLION NOS 03/24/2016 CRISTIAN DAVIDSON Ot F17.210 NICOTINE DEPENDENCE, CIGARETTES, UNCOMPL 03/24/2016 CRISTIAN DAVIDSON Ot S61.215A LACERATION W/O FB OF L RNG FNGR W/O DARREL 03/24/2016 CRISTIAN DAVIDSON Ot W45.2XXA LID OF CAN ENTERING THROUGH SKIN, INITIA 03/24/2016 CRISTIAN DAVIDSON Ot Y99.8 OTHER EXTERNAL CAUSE STATUS 03/24/2016 CRISTIAN DAVIDSON Ot Z 23 ENCOUNTER FOR IMMUNIZATION 03/24/2016 Ot 727.43 RIAZ GLION NOS 03/25/2016 TED KOWALSKI DO Ot Z53.21 PROC/TRTMT NOT CRD OUT D/T PT LV BEF SEE 03/26/2016 CRISTIAN DAVIDSON Ot F17.210 NICOTINE DEPENDENCE, CIGARETTES, UNCOMPL 03/26/2016 CRISTIAN DAVIDSON Ot S61.215A [facility] 03/26/2016 CRISTIAN DAVIDSON Ot W45.2XXA LID OF CAN ENTERING THROUGH SKIN, INITIA 03/26/2016 CRISTIAN DAVIDSON Ot Y99.8 OTHER EXTERNAL CAUSE STATUS 03/26/2016 CRISTIAN DAVIDSON Ot Z 23 ENCOUNTER FOR IMMUNIZATION 03/26/2016 CRISTIAN DAVIDSON Ot F17.210 NICOTINE DEPENDENCE, CIGARETTES, UNCOMPL 03/26/2016 CRISTIAN DAVIDSON Ot S61.215A LACERATION W/O FB OF L [facility] W/O DARREL 03/26/2016 CRISTIAN DAVIDSON Ot W45.2XXA LID OF CAN ENTERING THROUGH SKIN, INITIA 03/26/2016 CRISTIAN DAVIDSON Ot Y99.8 OTHER EXTERNAL CAUSE STATUS 03/26/2016 CRISTIAN DAVIDSON Ot Z 23 ENCOUNTER FOR IMMUNIZATION 04/09/2016 TED KOWALSKI DO Ot Z53.21 PROC/TRTMT NOT CRD OUT D/T PT LV BEF SEE 04/11/2016 TED KOWALSKI DO Ot Z53.21 PROC/TRTMT NOT CRD OUT D/T PT LV BEF SEE 12/28/2016 Ot 727.43 RIAZ GLION NOS 03/17/2018 Ot 727.43 RIAZ GLION NOS 12/14/2019 IVANA GONG, FESTUS Ot F17.210 NICOTINE DEPENDENCE, CIGARETTES, UNCOMPL 12/14/2019 FESTUS HEATH MD Ot I82.409 ACUTE EMBOLISM AND THOMBOS UNSP DEEP VN 12/14/2019 IVANA GONG, FESTUS Ot M19.91 PRIMARY OSTEOARTHRITIS, UNSPECIFIED SITE Procedures Code Description Performed By Per formed On [facility] Alonso [place]more 11/29/2012 29549 XRAY FOOT RIGHT COMP MIN 3 VIEWS 07/29/2013 82601 XRAY WRIST L COMP MIN 3 VIEWS 09/28/2014 79857 XRAY HAND LEFT 2 VIEWS 09/28/2014 Results Test Result Range CBC - 09/08/19 17:04 WHITE BLOOD CELL COUNT 6.6 Thousand/uL 3 .8-10.8 RED BLOOD CELL COUNT 4.48 Million/uL 4.2 0-5.80 HEMOGLOBIN 14.6 g/dL 13.2-17.1 HEMATOCRIT 42.0 % 38.5-50.0 MCV 93.8 fL 80.0-100.0 MCH 32.6 pg 27.0-33.0 MCHC 34.8 g/dL 32.0-36.0 RDW 11.5 % 11.0-15.0 PLATELET COUNT 302 Thousand/uL 140-400 MPV 9.9 fL 7.5-12.5 ABSOLUTE NEUTROPHILS 4310 cells/uL 1500- 7800 ABSOLUTE LYMPHOCYTES 1630 cells/uL 850-3 900 ABSOLUTE MONOCYTES 528 cells/uL 200-950 ABSOLUTE EOSINOPHILS 112 cells/uL 15-500 ABSOLUTE BASOPHILS 20 cells/uL 0-200 NEUTROPHILS 65.3 % NRG LYMPHOCYTES 24.7 % NRG MONOCYTES 8.0 % NRG EOSINOPHILS 1.7 % NRG BASOPHILS 0.3 % NRG VITAMIN D, 25-H - 10/17/19 11:46 VITAMIN D,25-OH,TOTAL,IA 14 ng/mL 30-10 0 VITAMIN B12/FOLATE, SERUM PANEL - 11:46 VITAMIN B12 496 pg/mL 200-1100 FOLATE, SERUM 2.6 ng/mL NRG Encounters ACCT No. Visit Date/Time Discharge Status Pt. Type Provider Facility Loc./Unit Complaint [id number] 05/07/2020 13:00:00 05/07/2020 23:59: 59 [id number] 10/17/2019 11:00:00 Document Registration [id number] 09/08/2019 16:40:00 Document Registration [id number] 09/15/2019 08:17:00 00:01:00 DIS Outpatient IVANA GONG, FESTUS Medrano ia [facility] ONC [id number] 03/24/2016 10:50:00 016 12:52:00 DIS Emergency CRISTIAN DAVIDSON Via [facility] ER LEFT RING FINGER LAC [id number] 03/23/2016 22:21:00 016 23:12:00 DIS Emergency TED KOWALSKI DO Via [facility] ER [id number] 04/30/2015 21:55:00 015 00:26:00 DIS Emergency INGRID KIMBERLI Vi a [facility] ER R SHOULDER COLLARBONE P AIN [id number] 07/04/2020 12:00:[address] Emergency EVA KRUGER APRN [facility] ER LEG PAIN;LEG SWELLING [id number] 01/03/2013 10:42:00 Document Registration [id number] 04/18/2011 13:43:00 Document Registration [id number] 07/29/2010 22:55:00 Document Registration [id number] 09/28/2014 14:40:00 09/28/2014 23:59: 59 CLS Outpatient LYNNE JAMISON MD [id number] 12/30/2012 14:31:00 12/30/2012 23:59: 59 CLS Outpatient LEIF COLEMAN DO [id number] 11/29/2012 14:55:00 11/29/2012 23:59: 59 CLS Outpatient TED HERNÁNDEZ APRN [id number] 10/08/2009 14:52:00 10/08/2009 23:59: 59 CLS Outpatient [id number] 08/04/2013 15:58:00 Document Registration [id number] 07/29/2013 14:54:00 Document Registration
[2020-07-04 12:44] LABS: BASOPHILS % (AUTO) 0 % (0-10); EOSINOPHILS # (AUTO) 0.1 10^3/uL (0.0-0.3); EOSINOPHILS % (AUTO) 1 % (0-10); HEMATOCRIT 45 % (40-54); HEMOGLOBIN 15.4 G/DL (13.3-17.7); LYMPHOCYTES # (AUTO) 1.3 X 10^3 (1.0-4.0); LYMPHOCYTES % (AUTO) 11 % (12-44); MEAN CORPUSCULAR HEMOGLOBIN 32 PG (25-34); MEAN CORPUSCULAR HGB CONC 34 G/DL (32-36); MEAN CORPUSCULAR VOLUME 92 FL (80-99); MEAN PLATELET VOLUME 9.8 FL (7.4-10.4); MONOCYTES # (AUTO) 1.5 X 10^3 (0.0-1.0); MONOCYTES % (AUTO) 13 % (0-12); NEUTROPHILS # (AUTO) 8.8 X 10^3 (1.8-7.8); NEUTROPHILS % (AUTO) 75 % (42-75); PLATELET COUNT 107 10^3/uL (130-400); RED CELL DISTRIBUTION WIDTH 13.5 % (10.0-14.5); WHITE BLOOD COUNT 11.7 10^3/uL (4.3-11.0)
[2020-07-04] MEDS ORDERED: HYDROcodone/APAP 5 MG/325 MG (LORTAB) TAB PO ONE (12:45)
[2020-07-04 13:02] LABS: BUN/CREATININE RATIO 9; CARBON DIOXIDE 19 MMOL/L (21-32); CHLORIDE 103 MMOL/L (98-107); CREATININE SERUM 1.12 MG/DL (0.60-1.30); GFR ESTIMATED > 60; GLUCOSE 109 MG/DL (70-105); POTASSIUM 3.8 MMOL/L (3.6-5.0); SODIUM 137 MMOL/L (135-145)
--- NOTE | 2020-07-04 13:09 | NUR ---
Carlos morgan in [facility] - 07/04/20 at 1402 by PMCCLURE PHONE ,W/C AND O2 TANK GIVEN TO DAUGHTER LINA CABRERA PER PATIENT REQUEST.
[2020-07-04] MEDS ORDERED: IOHEXOL 350 MG/ML 100 ML (OMNIPAQUE 350) VIAL IV ONE (14:00)
[2020-07-04] MEDS ORDERED: NS 100 ML (IVPB) BAG IV ONE (14:00)
[2020-07-04] MEDS ORDERED: HOLD METFORMIN - RECEIVED CONTRAST 20 ML VIAL IV SCH (14:00)
--- NOTE | 2020-07-04 14:02 | Diagnostic Imaging Report ---
PROCEDURE: US right lower extremity venous. TECHNIQUE: Multiple real-time grayscale images were obtained over the right lower extremity in various projections. Additional spectral analysis and color Doppler duplex images were also obtained. INDICATION: Right leg pain and swelling. FINDINGS: There appears to be significant occlusive DVT throughout the right lower extremity deep venous system. Occlusive thrombus extends from the right common femoral vein to the calf. No fluid collection is identified. IMPRESSION: Extensive occlusive right lower extremity DVT. Dictated by: Dictated on workstation # [id number]
[2020-07-04] MEDS ORDERED: HEParin DRIP 25000 UNIT/500ML 500 ML IV ONE (14:13)
[2020-07-04] MEDS ORDERED: HEParin 1000 UNIT/ML (10ML VIAL) FOR BOLUS IV ONE (14:15)
--- NOTE | 2020-07-04 14:38 | Diagnostic Imaging Report ---
PROCEDURE: CT angiography of the chest with contrast. TECHNIQUE: Multiple contiguous axial images were obtained through the chest after uneventful bolus administration of intravenous contrast. 3D reconstructed CTA MIP acquisitions were also performed. Auto Exposure Controls were utilized during the CT exam to meet ALARA standards for radiation dose reduction. INDICATION: Right leg DVT. No prior studies are available for comparison. Evaluation of pulmonary arterial system does demonstrate several defects within pulmonary arteries. Minimal thrombus is identified within the left lower lobar branch as well as left upper lobe branch. There is some filling defects involving a segmental left lower lobe branch. There is filling defects involving the right lower lobe. Peripheral opacity in the lateral aspect of the right lower lobe is seen, which could represent an area of pulmonary infarct. Minimal subpleural density along the lateral aspect of the left lower lobe is also noted which could represent very early pulmonary infarct. No definite central or saddle embolus is identified. The aorta is of normal caliber. There is no dissection. There is no pericardial or pleural fluid. The upper abdomen is unremarkable. IMPRESSION: Findings consistent with bilateral pulmonary emboli. There are some peripheral based pulmonary opacities in the lower lobes bilaterally which could represent pulmonary infarcts. No central or saddle emboli are detected. Dictated by: Dictated on workstation # [id number]
[2020-07-04] MEDS ORDERED: NICOTINE 21 MG (NICODERM) PATCH TD ONE (15:15)
--- NOTE | 2020-07-04 15:45 | NUR ---
MALLORYCARIDAD admitted to room 401-1, with an admitting diagnosis of right leg DVT, on 07/04/20 from ER via wheel chair , accompanied by staff .CARIDAD TEJADA introduced to surroundings, call light, bed controls, phone, TV, temperature control, lights, meal times, smoking policy, visitor policy, side rail policy, bathrooms and showers. Patient Rights given to patient in the handbook. CARIDAD TEJADA verbalizes understanding that [facility] is not responsible for the loss or damage to any personal effects or valuables that are kept in the patients posession during their hospitalization. The following Patient Care Plans and discharge were discussed with the patient. CARIDAD TEJADA verbalizes understanding of Interdisciplinary Patient Education. Patient was informed about the Rapid Response Team and its purpose.
[2020-07-04] MEDS ORDERED: CARI3CAP PO (15:53)
[2020-07-04] MEDS ORDERED: TRAZ-227 PO (15:53)
[2020-07-04] MEDS ORDERED: RIVA20TA PO (15:53)
[2020-07-04 16:00] VITALS: BP 122/76
[2020-07-04] MEDS ORDERED: CATHETER FLUSH 10 ML SYR IV PRN (16:15)
[2020-07-04] MEDS ORDERED: LORazepam INJ 2 MG/ML (ATIVAN) VIAL IV PRN (16:15)
[2020-07-04 16:18] VITALS: BP 122/76
[2020-07-04 16:35] VITALS: BP 123/86
[2020-07-04] MEDS: NS IV 1000 ML 1,000 ML IV SCH (16:45)
[2020-07-04] MEDS ORDERED: RT-ALBUTEROL SULF 2.5 MG/3 ML PRE-MIX VIAL INH PRN (17:00)
[2020-07-04] MEDS: HYDROcodone/APAP 5 MG/325 MG (LORTAB) TAB PO PRN ×2 (17:41→22:04)
[2020-07-04 20:00] VITALS: BP 110/72
[2020-07-04] MEDS ORDERED: PATIENT MAY USE OWN MEDS, ALL MC SCH (20:15)
[2020-07-04] MEDS: RT-ALBUTEROL SULF 2.5 MG/3 ML PRE-MIX VIAL INH SCH (20:49)
[2020-07-04] MEDS ORDERED: CATHETER FLUSH 10 ML SYR IV SCH (22:00)
[2020-07-04] MEDS: traZODone 100 MG (DESYREL) TAB PO SCH (22:04)
[2020-07-04] MEDS: HEParin DRIP 25000 UNIT/500ML 500 ML IV SCH (23:35)
[2020-07-05] VITALS (8 sets, daily range): BP systolic 104–134; BP diastolic 59–81
[2020-07-05] MEDS: NS IV 1000 ML 1,000 ML IV SCH ×3 (02:58→20:03)
--- NOTE | 2020-07-05 03:05 | NUR ---
Patient call light answered, upon entering the room, patient is in the bed shaking from head to toes. He is complaining of severe pain in his Right thigh into the groin. Right leg is noticeably red and swollen. Palpated pulses show a bounding pulse in the left dorsals pedis pulse. the Right is faint but easily detectable. The posterior tibialis is also faint compared to the left. Right thigh is warm while the foot is cooler. the toes and foot of the right foot are swollen in comparison with the left foot. Patient states this is the worst pain he has felt and rates it a strong 10/10 Pain medication given at this time. Vital signs were taken at this time as follows: T 37.4 HR 98 o2 99% on RA RR 22 BP 134/81. Educated patient to not get out of bed and to inform nursing staff of any changes in pain level, any chest pain, sob or any changes in mentation. Dr Renee called and informed of patients status. Orders as follows.Continue heparin drip. Pulse checks hourly, Strict Bedrest. Call immediately with pain unrelieved, changes in pain or any other symptoms of blood clot in other areas. Dr Renee will be in early to assess patient
[2020-07-05] MEDS: HYDROcodone/APAP 5 MG/325 MG (LORTAB) TAB PO PRN ×2 (03:10→08:15)
[2020-07-05 04:58] LABS: BASOPHILS % (AUTO) 0 % (0-10); EOSINOPHILS # (AUTO) 0.3 10^3/uL (0.0-0.3); EOSINOPHILS % (AUTO) 3 % (0-10); HEMATOCRIT 38 % (40-54); HEMOGLOBIN 13.1 G/DL (13.3-17.7); LYMPHOCYTES # (AUTO) 1.7 X 10^3 (1.0-4.0); LYMPHOCYTES % (AUTO) 18 % (12-44); MEAN CORPUSCULAR HEMOGLOBIN 32 PG (25-34); MEAN CORPUSCULAR HGB CONC 34 G/DL (32-36); MEAN CORPUSCULAR VOLUME 93 FL (80-99); MEAN PLATELET VOLUME 9.6 FL (7.4-10.4); MONOCYTES # (AUTO) 1.1 X 10^3 (0.0-1.0); MONOCYTES % (AUTO) 12 % (0-12); NEUTROPHILS % (AUTO) 67 % (42-75); PLATELET COUNT 102 10^3/uL (130-400); RED CELL DISTRIBUTION WIDTH 13.1 % (10.0-14.5)
[2020-07-05 05:18] LABS: ALANINE AMINOTRANSFERASE 15 U/L (0-55); ALBUMIN 3.6 GM/DL (3.2-4.5); ALKALINE PHOSPHATASE 79 U/L (40-136); BILIRUBIN,TOTAL 0.8 MG/DL (0.1-1.0); BUN/CREATININE RATIO 10; CALCIUM 8.1 MG/DL (8.5-10.1); CARBON DIOXIDE 19 MMOL/L (21-32); CHLORIDE 103 MMOL/L (98-107); CREATININE SERUM 0.92 MG/DL (0.60-1.30); GFR ESTIMATED > 60; GLUCOSE 107 MG/DL (70-105); POTASSIUM 3.6 MMOL/L (3.6-5.0); SODIUM 135 MMOL/L (135-145); TOTAL PROTEIN 6.5 GM/DL (6.4-8.2)
[2020-07-05] MEDS: HEParin 1000 UNIT/ML (10ML VIAL) FOR BOLUS IV SCH (05:27)
[2020-07-05] MEDS: HEParin DRIP 25000 UNIT/500ML 500 ML IV SCH ×2 (05:33→11:20)
[2020-07-05] MEDS: RT-ALBUTEROL SULF 2.5 MG/3 ML PRE-MIX VIAL INH SCH ×2 (08:04→21:53)
[2020-07-05] MEDS: DOCUSATE SODIUM 100 MG (COLACE) CAP PO SCH (08:15)
[2020-07-05] MEDS: NICOTINE 21 MG (NICODERM) PATCH TD SCH (08:15)
[2020-07-05] MEDS: NICOTINE PATCH REMOVAL TP SCH (08:16)
[2020-07-05] MEDS: VRAYLAR 3 MG CAPSULE PO SCH (08:16)
--- NOTE | 2020-07-05 08:50 | History & Physical ---
GORDONCAMILO MED STUDENT 07/05/20 0850: History of Present Illness History of Present Illness Reason for visit/HPI cc: DVT/PE. Pt felt discomfort 2 days ago was mind numbing pain, poking pain inner thigh above groin on R. The pain became unbearable yesterday. Pain is now 7/10 which was previously 8-9/10. Being immobile helps. Moving makes the pain worse. Hydrocodone pain pills kind of help but it makes him more sleepy than anything. slept a couple of hours. went to bathroom at 3 am, with shooting pain and had shaking. pain radiated down leg. denies PMI - had cyst at 14 on dorsal wrist on R side. Date of Admission Jul 04, 2020 at 14:47 I consulted on this patient on 07/05/20 08:45 Attending Physician Erlinda Ta MD Admitting Physician Kade Randolph MD Consult Allergies and Home Medications Allergies Coded Allergies: ibuprofen (Unverified Allergy, Unknown, 04/30/15) Home Medications Acetaminophen 325 Mg Capsule, 650 MG PO Q6H PRN for PAIN-MILD (1-4), (Reported) Cariprazine Hydrochloride 3 Mg Capsule, 3 MG PO DAILY, (Reported) Rivaroxaban 20 Mg Tablet, 20 MG PO DAILY, (Reported) LAST FILLED 05-28-2020 #30 DAY SUPPLY Trazodone HCl 100 Mg Tablet, 100-200 MG PO HS, (Reported) Patient Home Medication List Home Medication List Reviewed: Yes Past Jixykde-Njtekm-Tmcjvg Hx Patient Social History Marrital Status: single 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) Alcohol Use: Rarely Uses Number of Drinks Today: AA Alcohol Beverage of Choice: Beer (4d a week. 7-8 beers and a shot or two.) Recreational Drug Use: Yes Drug of Choice: weed Smoking Status: Current Everyday Smoker (1 pk/day for 14 yrs.) Type Used: Cigarettes 2nd Hand Smoke Exposure: Yes Physical Abuse Screen: No Sexual Abuse: No Recent Foreign Travel: No Contact w/other who traveled: No Recent Hopitalizations: No Recent Infectious Disease Expo: No Immunizations Up To Date Tetanus Booster (TDap): Unknown Pediatric: Yes Seasonal Allergies Seasonal Allergies: No Surgeries Yes (R WRIST) Orthopedic Respiratory No Cardiovascular Yes Deep Vein Thrombosis Neurological No Genitourinary No Gastrointestinal No Musculoskeletal No Endocrine History of Endocrine Disorders: No HEENT History of HEENT Disorders: No Cancer No Psychosocial History of Psychiatric Problem: Yes Behavioral Health Disorders: Bipolar Integumentary History of Skin or Integumenta: No Blood Transfusions History of Blood Disorders: No Adverse Reaction to a Blood Tr: No Family Medical History Significant Family History: No Pertinent Family Hx Family Hx: Alcoholism 19 FATHER 19 MOTHER Arthritis Asthma 19 MOTHER Cardiovascular disease 19 FATHER 19 MOTHER Coronary thrombosis 19 FATHER 19 MOTHER Hypertension 19 FATHER Parkinson's disease 19 FATHER 19 MOTHER Respiratory disorder 19 MOTHER Seizure disorder Severe allergy G8 BROTHER Visual disorder 19 MOTHER Physical Exam Vital Signs Vital Signs - First Documented 07/04/20 07/04/20 12:24 16:35 Temp 37.8 Pulse 92 Resp 18 B/P (MAP) 123/86 (98) Pulse Ox 98 O2 Delivery Room Air FiO2 21 Capillary Refill : Less Than 3 Seconds Height, Weight, BMI Height: 5'10" Weight: 190lbs. oz. 86.171088fr; 28.08 BMI Method:Stated General Appearance: No Apparent Distress Clinical Quality Measures DVT/VTE Risk/Contraindication: Risk Factor Score Per Nursin RFS Level Per Nursing on Admit: 3=High ERLINDA TA MD 07/05/20 1441: History of Present Illness History of Present Illness Reason for visit/HPI Agree with above HPI, In addition patient states that he has a blood condition and is not sure what it is called but he was told that he would have to be on OAC for his lifetime. He has had 1 previous clot. Denies any shortness of breath or cough. He has not been traveling and denies any other sick contacts. States that he ran out of his medication and then did not have a ride to get to the clinic to get a refill. Discussed with patient that [facility] pharm has delivery options so in the future he can get his medications. Date Seen by a Provider: Jul 05, 2020 Time Seen by a Provider: 09:05 Allergies and Home Medications Allergies Coded Allergies: ibuprofen (Unverified Allergy, Unknown, 04/30/15) Home Medications Acetaminophen 325 Mg Capsule, 650 MG PO Q6H PRN for PAIN-MILD (1-4), (Reported) Cariprazine Hydrochloride 3 Mg Capsule, 3 MG PO DAILY, (Reported) Rivaroxaban 20 Mg Tablet, 20 MG PO DAILY, (Reported) LAST FILLED 05-28-2020 #30/30 DAY SUPPLY Trazodone HCl 100 Mg Tablet, 100-200 MG PO HS, (Reported) Patient Home Medication List Home Medication List Reviewed: Yes Past Rsktvvh-Jtesdq-Jvxcqa Hx Family Medical History Family Hx: Alcoholism 19 FATHER 19 MOTHER Arthritis Asthma 19 MOTHER Cardiovascular disease 19 FATHER 19 MOTHER Coronary thrombosis 19 FATHER 19 MOTHER Hypertension 19 FATHER Parkinson's disease 19 FATHER 19 MOTHER Respiratory disorder 19 MOTHER Seizure disorder Severe allergy G8 BROTHER Visual disorder 19 MOTHER Review of Systems Constitutional: No fever; weakness EENTM: no symptoms reported; No mouth pain, No nose pain, No throat pain Respiratory: no symptoms reported; No cough, No dyspnea on exertion, No short of breath Cardiovascular: no symptoms reported; No chest pain, No palpitations Gastrointestinal: no symptoms reported; No abdominal pain, No constipation, No diarrhea, No loss of appetite, No nausea, No vomiting Genitourinary: no symptoms reported; No dysuria, No frequency, No hematuria Musculoskeletal: joint swelling Skin: no symptoms reported; No lesions, No rash Psychiatric/Neurological: No Symptoms Reported Physical Exam General Appearance: No Apparent Distress, WD/WN HEENT: PERRL/EOMI Neck: Full Range of Motion, Normal Inspection, Non Tender Respiratory: Chest Non Tender, Lungs Clear, Normal Breath Sounds, No Accessory Muscle Use, No Respiratory Distress Cardiovascular: Regular Rate, Rhythm, No Edema, No Murmur Gastrointestinal: Normal Bowel Sounds, Non Tender, Soft Back: No CVA Tenderness, No Vertebral Tenderness Extremity: Calf Tenderness (Right), Pedal Edema, Swelling (Right, palpable pulses bilaterally) Neurologic/Psychiatric: Alert, Oriented x3, No Motor/Sensory Deficits, Normal Mood/Affect, supervising producer II-XII Norm as Tested Lymphatic: No Adenopathy Assessment/Plan Assessment and Plan Problems: (1) Right leg DVT Status: Acute Qualifiers: Qualified Codes: I82.491 - Acute embolism and thrombosis of other specified deep vein of right lower extremity Assessment & Plan: - Dr Alonso (Vascular Surgery, [place]) was consulted out of ER and patient is not a candidate for thrombectomy, recommends starting heparin drip and close monitoring (2) Bilateral pulmonary embolism (3) Blood clotting disorder (4) Right leg pain Status: Acute Assessment & Plan: - Started on Voss and has Fentynl for breakthru Admission Diagnosis Admission Status: Inpatient Order (span 2 midnights) Reason for Inpatient Admission: Patient requires IV anticoagulation while OAC is titrated and needs monitored for oxygen saturation due to large clot burden Supervisory-Addendum Brief Verification & Attestation Participated in pt care: history, physical Personally performed: exam, history Care discussed with: Medical Student Procedures: n/a Verification and Attestation of Medical Student E/M Service A medical student performed and documented this service in my presence. I reviewed and verified all information documented by the medical student and made modifications to such information, when appropriate. I personally performed the physical exam and medical decision making. Erlinda Ta, Jul 05, 2020,14:42 CAMILO GORDON MED STUDENT Jul 05, 2020 08:50 ERLINDA TA MD Jul 05, 2020 14:41
--- NOTE | 2020-07-05 11:15 | NUR ---
SPOKE WITH THE PT AND CALLED [facility] TO COMPLETE THE MED REC PT GETS VRAYLAR 3MG THRU THE MAIL ORDER FROM THE COMPANY AND AIDA LOCKETT AT [facility] VERIFIED THE DOSE XARELTO 20MG LAST FILLED 05-28-2020 #30/30DS I DOCUMENTED THE PAST DUE FILL ON THE MED REC TRAZODONE 100MG LAST FILLED 05-07-2020 #60 OTC MEDS: TYLENOL
[2020-07-05] MEDS ORDERED: ACET325C7 PO (11:19)
[2020-07-05] MEDS: HYDROcodone/APAP 10 MG/325 MG (LORTAB) TAB PO PRN ×2 (13:01→20:00)
[2020-07-05] MEDS: traZODone 100 MG (DESYREL) TAB PO SCH (20:00)
--- NOTE | 2020-07-06 03:50 | NUR ---
2400 no change in heprin gtt rate
[2020-07-06 03:55] VITALS: BP 108/58
[2020-07-06] MEDS: HYDROcodone/APAP 10 MG/325 MG (LORTAB) TAB PO PRN ×4 (04:19→20:01)
[2020-07-06 06:37] LABS: BASOPHILS % (AUTO) 0 % (0-10); EOSINOPHILS # (AUTO) 0.3 10^3/uL (0.0-0.3); EOSINOPHILS % (AUTO) 3 % (0-10); HEMATOCRIT 38 % (40-54); HEMOGLOBIN 12.6 G/DL (13.3-17.7); LYMPHOCYTES # (AUTO) 1.5 X 10^3 (1.0-4.0); LYMPHOCYTES % (AUTO) 17 % (12-44); MEAN CORPUSCULAR HEMOGLOBIN 31 PG (25-34); MEAN CORPUSCULAR HGB CONC 33 G/DL (32-36); MEAN CORPUSCULAR VOLUME 94 FL (80-99); MEAN PLATELET VOLUME 10.3 FL (7.4-10.4); MONOCYTES % (AUTO) 12 % (0-12); NEUTROPHILS # (AUTO) 6.1 X 10^3 (1.8-7.8); NEUTROPHILS % (AUTO) 69 % (42-75); PLATELET COUNT 127 10^3/uL (130-400); RED CELL DISTRIBUTION WIDTH 13.2 % (10.0-14.5); WHITE BLOOD COUNT 8.9 10^3/uL (4.3-11.0)
[2020-07-06] MEDS: NS IV 1000 ML 1,000 ML IV SCH (06:39)
[2020-07-06 07:04] LABS: ALANINE AMINOTRANSFERASE 18 U/L (0-55); ALBUMIN 3.5 GM/DL (3.2-4.5); ALKALINE PHOSPHATASE 81 U/L (40-136); BILIRUBIN,TOTAL 0.5 MG/DL (0.1-1.0); BUN/CREATININE RATIO 8; CALCIUM 8.5 MG/DL (8.5-10.1); CARBON DIOXIDE 21 MMOL/L (21-32); CHLORIDE 105 MMOL/L (98-107); CREATININE SERUM 0.86 MG/DL (0.60-1.30); GFR ESTIMATED > 60; GLUCOSE 109 MG/DL (70-105); POTASSIUM 3.8 MMOL/L (3.6-5.0); SODIUM 135 MMOL/L (135-145); TOTAL PROTEIN 6.1 GM/DL (6.4-8.2)
[2020-07-06] MEDS: RT-ALBUTEROL SULF 2.5 MG/3 ML PRE-MIX VIAL INH SCH ×2 (07:41→20:35)
[2020-07-06 08:00] VITALS: BP 134/74
--- NOTE | 2020-07-06 08:37 | Progress Note ---
CAMILO GORDON X MED STUDENT 07/06/20 0837: Subjective Subjective/Events-last exam Mr. Kat has complained of worse pain, now 9/10, pain med dose increased overnight. IV heparin continued. R LE appears more swollen and warm than previous, from hip to toes, edema. no discoloration, compared bilat. Increased pain in hip and groin that's now radiated to posterolateral pelvis. His appetite is normal, ate last night. No BM since admission, no problems with urination. Pt is unable to walk and not recommended to do so. Objective Exam Last Set of Vital Signs Vital Signs Date Time Temp Pulse Resp B/P (MAP) Pulse Ox O2 Delivery O2 Flow Rate FiO2 07/06/20 07:41 93 Room Air 07/06/20 07:00 91 07/06/20 06:38 37.0 07/06/20 03:55 20 108/58 (75) 07/05/20 21:53 21 Capillary Refill : Less Than 3 Seconds I&O Intake and Output 07/06/20 00:00 Intake Total 2830 ml Output Total 1400 ml Balance 1430 ml Intake Oral 2830 ml Output Urine Total 1400 ml General: Alert, Oriented X3, Cooperative HEENT: Atraumatic Lungs: Clear to Auscultation Heart: Regular Rate Extremities: Other (swollen, warm, slightly tender R LE.) Skin: No Rashes, No Significant Lesion Neuro: Normal Speech Psych/Mental Status: Mental Status NL, Mood NL Results/Procedures Lab Laboratory Tests 07/05/20 10:47: Activated Partial Thromboplast Time 85H 07/05/20 18:10: Activated Partial Thromboplast Time 106H 07/06/20 00:15: Activated Partial Thromboplast Time 56H 07/06/20 05:44: Activated Partial Thromboplast Time 54H, Sodium Level 135, Potassium Level 3.8, Chloride Level 105, Carbon Dioxide Level 21, Anion Gap 9, Blood Urea Nitrogen 7, Creatinine 0.86, Estimat Glomerular Filtration Rate > 60, BUN/Creatinine Ratio 8, Glucose Level 109H, Calcium Level 8.5, Corrected Calcium 8.9, Total Bilirubin 0.5, Aspartate Amino Transf (AST/SGOT) 17, Alanine Aminotransferase (ALT/SGPT) 18, Alkaline Phosphatase 81, Total Protein 6.1L, Albumin 3.5 07/06/20 05:45: White Blood Count 8.9, Red Blood Count 4.01L, Hemoglobin 12.6L, Hematocrit 38L, Mean Corpuscular Volume 94, Mean Corpuscular Hemoglobin 31, Mean Corpuscular Hemoglobin Concent 33, Red Cell Distribution Width 13.2, Platelet Count 127L, Mean Platelet Volume 10.3, Neutrophils (%) (Auto) 69, Lymphocytes (%) (Auto) 17, Monocytes (%) (Auto) 12, Eosinophils (%) (Auto) 3, Basophils (%) (Auto) 0, Neutrophils # (Auto) 6.1, Lymphocytes # (Auto) 1.5, Monocytes # (Auto) 1.0, Eosinophils # (Auto) 0.3, Basophils # (Auto) 0.0 Assessment/Plan Assessment/Plan Assessment & Plan DVT/PE of R LE w/ bilate PE - continue heparin, bridge with Xarelto tomorrow. continue IVF R LE pain/swelling - hydrocodone increased overnight, plus docusate. no compression hose warranted d/t clot. elevate leg, stretch, possible wrap compressions. albuteral sulfate for difficulty with airway. difficulty sleeping - continue trazodone and lorazepam smoking - continue nicotine patch. decrease smoking ~MS Tony3 Clinical Quality Measures DVT/VTE Risk/Contraindication: Risk Factor Score Per Nursin RFS Level Per Nursing on Admit: 3=High ERLINDA RENEE MD 07/06/20 1230: Subjective Subjective/Events-last exam O/N had some pain but slept some. Has been in bed. No BM for the last 2 days Review of Systems Pulmonary: No Dyspnea, No Cough Cardiovascular: No: Chest Pain, Palpitations Gastrointestinal: Constipation; No: Nausea, Vomiting, Abdominal Pain Musculoskeletal: leg pain Neurological: Weakness, Numbness Objective Exam General: Alert, Oriented X3, Cooperative Lungs: Clear to Auscultation, Normal Air Movement Heart: Regular Rate, No Murmurs Abdomen: Normal Bowel Sounds, Soft, No Tenderness, No Masses Extremities: Other (swollen, warm, slightly tender R LE, palpable DP pulse in RLE) Skin: No Rashes Neuro: Sensation Intact Assessment/Plan Assessment/Plan (1) Right leg DVT Status: Acute Assessment & Plan: 07/06: Heparin Drip x 72hrs, Dr Vetsch consulted out of the ED and no intervention recommended, will transition to Xarelto Qualifiers: Qualified Codes: I82.491 - Acute embolism and thrombosis of other specified deep vein of right lower extremity (2) Bilateral pulmonary embolism Status: Acute (3) Right leg pain Status: Acute Assessment & Plan: 07/06: [place], started Gabapentin today (4) Blood clotting disorder Status: Chronic Supervisory-Addendum Brief Supervisory Addendum Verification and Attestation of Medical Student E/M Service A medical student performed and documented this service in my presence. I reviewed and verified all information documented by the medical student and made modifications to such information, when appropriate. I personally performed the physical exam and medical decision making. Erlinda Renee, Jul 06, 2020,12:31 CAMILO GORDON MED STUDENT Jul 06, 2020 08:37 ERLINDA RENEE MD Jul 06, 2020 12:30
[2020-07-06] MEDS: NICOTINE 21 MG (NICODERM) PATCH TD SCH (08:47)
[2020-07-06] MEDS: VRAYLAR 3 MG CAPSULE PO SCH (08:48)
[2020-07-06] MEDS: DOCUSATE SODIUM 100 MG (COLACE) CAP PO SCH (08:48)
[2020-07-06] MEDS: NICOTINE PATCH REMOVAL TP SCH (08:51)
[2020-07-06] MEDS: SENNA W/DOCUSATE (SENOKOT S) TABLET PO SCH ×2 (09:00→20:01)
[2020-07-06] MEDS: HEParin 1000 UNIT/ML (10ML VIAL) FOR BOLUS IV SCH ×2 (10:27→23:20)
[2020-07-06] MEDS: HEParin DRIP 25000 UNIT/500ML 500 ML IV SCH ×2 (10:33→22:06)
[2020-07-06] MEDS: GABAPENTIN 300 MG (NEURONTIN) CAP PO SCH ×3 (11:01→21:14)
[2020-07-06 12:00] VITALS: BP 125/67
[2020-07-06 15:30] VITALS: BP 108/69
[2020-07-06 19:44] VITALS: BP 123/76
[2020-07-06] MEDS: traZODone 100 MG (DESYREL) TAB PO SCH (20:01)
--- NOTE | 2020-07-06 23:32 | NUR ---
2300 - APTT is 59. Per protocol, administer bolus Heparin 3450 units and increase dose to 170 units / hour. Verified with Technical Laboratory Asst (Gauri RN), and Julio RN along with ICU nurses. New heparin drip dose is 33 ml/hr.
[2020-07-07] VITALS: BP 108/66
[2020-07-07] MEDS: HYDROcodone/APAP 10 MG/325 MG (LORTAB) TAB PO PRN ×4 (03:51→22:11)
[2020-07-07 04:00] VITALS: BP 120/74
[2020-07-07 05:29] LABS: BASOPHILS % (AUTO) 0 % (0-10); EOSINOPHILS # (AUTO) 0.3 10^3/uL (0.0-0.3); EOSINOPHILS % (AUTO) 4 % (0-10); HEMATOCRIT 35 % (40-54); HEMOGLOBIN 11.8 G/DL (13.3-17.7); LYMPHOCYTES # (AUTO) 1.6 X 10^3 (1.0-4.0); LYMPHOCYTES % (AUTO) 20 % (12-44); MEAN CORPUSCULAR HEMOGLOBIN 31 PG (25-34); MEAN CORPUSCULAR HGB CONC 33 G/DL (32-36); MEAN CORPUSCULAR VOLUME 94 FL (80-99); MEAN PLATELET VOLUME 9.5 FL (7.4-10.4); MONOCYTES # (AUTO) 1.1 X 10^3 (0.0-1.0); MONOCYTES % (AUTO) 13 % (0-12); NEUTROPHILS % (AUTO) 62 % (42-75); PLATELET COUNT 144 10^3/uL (130-400); WHITE BLOOD COUNT 8.1 10^3/uL (4.3-11.0)
[2020-07-07 05:53] LABS: BUN/CREATININE RATIO 8; CALCIUM 8.1 MG/DL (8.5-10.1); CARBON DIOXIDE 22 MMOL/L (21-32); CHLORIDE 103 MMOL/L (98-107); CREATININE SERUM 0.84 MG/DL (0.60-1.30); GFR ESTIMATED > 60; GLUCOSE 131 MG/DL (70-105); POTASSIUM 3.7 MMOL/L (3.6-5.0); SODIUM 136 MMOL/L (135-145)
--- NOTE | 2020-07-07 06:35 | NUR ---
0600 - APTT is 152. Per protocol, decrease dose to 170 units / hour. Verified with [employer] Sorter (LEVY Astorga), and LEVY Kim. New heparin drip dose is29.6 ml/hr.
[2020-07-07 07:28] VITALS: BP 114/67
[2020-07-07] MEDS: NS IV 1000 ML 1,000 ML IV SCH (07:38)
--- NOTE | 2020-07-07 08:00 | NUR ---
RIGHT THIGH AND LEG ABOVE KNEE VERY EDEMATOUS. NO DISCOLORATION NOTED. WARM.
[2020-07-07] MEDS: NICOTINE 21 MG (NICODERM) PATCH TD SCH (08:14)
[2020-07-07] MEDS: DOCUSATE SODIUM 100 MG (COLACE) CAP PO SCH (08:15)
[2020-07-07] MEDS: GABAPENTIN 300 MG (NEURONTIN) CAP PO SCH ×3 (08:15→20:04)
[2020-07-07] MEDS: SENNA W/DOCUSATE (SENOKOT S) TABLET PO SCH ×2 (08:15→20:04)
[2020-07-07] MEDS: VRAYLAR 3 MG CAPSULE PO SCH (08:16)
[2020-07-07] MEDS: NICOTINE PATCH REMOVAL TP SCH (08:16)
[2020-07-07] MEDS: RT-ALBUTEROL SULF 2.5 MG/3 ML PRE-MIX VIAL INH SCH ×2 (08:19→19:57)
--- NOTE | 2020-07-07 11:00 | NUR ---
LORTAB 10 PO FOR PAIN.
--- NOTE | 2020-07-07 11:46 | Progress Note - Hospitalist ---
Subjective HPI/CC On Admission Date Seen by Provider: Jul 07, 2020 Time Seen by Provider: 10:00 Subjective/Events-last exam Patient continues to complain primarily of right leg pain. He denies shortness of breath. He has the right leg elevated. Review of Systems Musculoskeletal: leg pain Objective Exam Vital Signs Vital Signs Date Time Temp Pulse Resp B/P (MAP) Pulse Ox O2 Delivery O2 Flow Rate FiO2 07/07/20 08:00 Room Air 07/07/20 07:28 36.4 81 16 114/67 (83) 94 07/05/20 21:53 21 Capillary Refill : Less Than 3 SecondsLess Than 3 Seconds General Appearance: No Apparent Distress, WD/WN HEENT: Normal ENT Inspection Neck: Full Range of Motion, Normal Inspection, Non Tender, Supple Respiratory: Lungs Clear, Normal Breath Sounds, No Accessory Muscle Use, No Respiratory Distress Cardiovascular: Regular Rate, Rhythm, No Gallop, No Murmur, Normal Peripheral Pulses Gastrointestinal: Normal Bowel Sounds, Non Tender, Soft Rectal: Deferred Extremity: Swelling (Right leg), Other (2+ pulses dorsalis pedis) Neurologic/Psychiatric: Alert, Oriented x3, No Motor/Sensory Deficits, Normal Mood/Affect Results/Procedures Lab Laboratory Tests 07/07/20 05:17 Patient resulted labs reviewed. Assessment/Plan Assessment/Plan Assessment & Plan (1) Right leg DVT Status: Acute Assessment & Plan: 07/06: Heparin Drip x 72hrs, Dr Alonso consulted out of the ED and no intervention recommended, will transition to Xarelto 07/07: Will begin Xarelto tonight-no evidence of compartment syndrome at this time Qualifiers: Affected thrombotic vein of extremity: other lower extremity vein Chronicity: acute Qualified Codes: I82.491 - Acute embolism and thrombosis of other specified deep vein of right lower extremity (2) Bilateral pulmonary embolism Status: Acute (3) Right leg pain Status: Acute Assessment & Plan: 07/06: [place], started Gabapentin today 07/07: Pain fairly well controlled (4) Blood clotting disorder Status: Chronic Clinical Quality Measures DVT/VTE Risk/Contraindication: Risk Factor Score Per Nursin RFS Level Per Nursing on Admit: 3=High GEE MARS MD Jul 07, 2020 11:46
[2020-07-07 12:04] VITALS: BP 121/65
--- NOTE | 2020-07-07 13:00 | NUR ---
PTT 60. HEPARIN RATE INCREASED TO 33CC/HR AND BOLUS 3.45 ML HEPARIN. VERIFIED INCREASE AND BOLUS WITH PHARMACIST AND WITNESS BY ILDA LOCKETT.
[2020-07-07] MEDS: HEParin 1000 UNIT/ML (10ML VIAL) FOR BOLUS IV SCH (13:14)
[2020-07-07] MEDS: HEParin DRIP 25000 UNIT/500ML 500 ML IV SCH (15:13)
--- NOTE | 2020-07-07 15:13 | NUR ---
NEW BAG HEPARIN HUNG WITH ILDA LOCKETT. CONTINUES AT 33 CC/HR.
[2020-07-07 15:30] VITALS: BP 112/63
--- NOTE | 2020-07-07 17:32 | NUR ---
LORTAB PO FOR PAIN RLE.
[2020-07-07] MEDS: RIVAROXABAN 15 MG TABLET (XARELTO) PO SCH (18:57)
[2020-07-07 19:40] VITALS: BP 139/62
[2020-07-07] MEDS: traZODone 100 MG (DESYREL) TAB PO SCH (20:04)
[2020-07-08] VITALS (8 sets, daily range): BP systolic 106–132; BP diastolic 62–94
[2020-07-08] MEDS: HYDROcodone/APAP 10 MG/325 MG (LORTAB) TAB PO PRN ×5 (02:04→22:18)
[2020-07-08] MEDS: RIVAROXABAN 15 MG TABLET (XARELTO) PO SCH ×2 (06:34→18:25)
[2020-07-08] MEDS: RT-ALBUTEROL SULF 2.5 MG/3 ML PRE-MIX VIAL INH SCH (07:31)
--- NOTE | 2020-07-08 08:00 | NUR ---
RT LEG ABOVE KNEE CONT VERY EDEMATOUS. NO DISCOLORATION. WARM.
[2020-07-08] MEDS: NICOTINE 21 MG (NICODERM) PATCH TD SCH (08:46)
[2020-07-08] MEDS: SENNA W/DOCUSATE (SENOKOT S) TABLET PO SCH ×2 (08:46→22:17)
[2020-07-08] MEDS: GABAPENTIN 300 MG (NEURONTIN) CAP PO SCH ×3 (08:46→22:17)
[2020-07-08] MEDS: DOCUSATE SODIUM 100 MG (COLACE) CAP PO SCH (08:46)
[2020-07-08] MEDS: NICOTINE PATCH REMOVAL TP SCH (08:47)
[2020-07-08] MEDS: VRAYLAR 3 MG CAPSULE PO SCH (08:47)
[2020-07-08] MEDS ORDERED: RT-ALBUTEROL SULF 2.5 MG/3 ML PRE-MIX VIAL INH PRN (09:15)
--- NOTE | 2020-07-08 11:10 | NUR ---
LORTAB 10 PO FOR PAIN.
--- NOTE | 2020-07-08 12:38 | Progress Note - Hospitalist ---
Subjective HPI/CC On Admission Date Seen by Provider: Jul 08, 2020 Time Seen by Provider: 11:00 Subjective/Events-last exam Patient was transitioned off heparin drip last night and started on Xarelto. The Xarelto was given 1 hour before the heparin drip was discontinued. He complains of increased right leg pain and indeed the right 5 seems to be more swollen than it was yesterday. He time he puts the right leg down the right lower extremity begins to swell again. He denies having increased shortness of breath or chest pain. His pulse was up a little bit earlier today but now is about 70-80 on my exam. O2 saturations remained 92-94 percent Review of Systems Musculoskeletal: leg pain Objective Exam Vital Signs Vital Signs Date Time Temp Pulse Resp B/P (MAP) Pulse Ox O2 Delivery O2 Flow Rate FiO2 07/08/20 11:46 37.4 87 16 120/70 (87) 93 Room Air 07/05/20 21:53 21 Capillary Refill : Less Than 3 SecondsLess Than 3 Seconds General Appearance: No Apparent Distress, WD/WN HEENT: Normal ENT Inspection Neck: Normal Inspection, Non Tender, Supple Respiratory: Chest Non Tender, Lungs Clear, Normal Breath Sounds, No Accessory Muscle Use, No Respiratory Distress Cardiovascular: Regular Rate, Rhythm, No Gallop, No JVD, No Murmur, Normal Peripheral Pulses Gastrointestinal: Normal Bowel Sounds, Non Tender, Soft Extremity: Calf Tenderness, Pedal Edema, Other (Right thigh large and tender with vascular redistribution) Neurologic/Psychiatric: Alert, Oriented x3, No Motor/Sensory Deficits, Normal Mood/Affect Results/Procedures Lab Patient resulted labs reviewed. Assessment/Plan Assessment and Plan Assess & Plan/Chief Complaint DVT Pulmonary emboli History of clotting disorder No evidence of venous compartment syndrome Will continue Xarelto 15 mg twice a day and check a venous Doppler of the right leg in the morning. Clinical Quality Measures DVT/VTE Risk/Contraindication: Risk Factor Score Per Nursin RFS Level Per Nursing on Admit: 3=GEE Kennedy MD Jul 08, 2020 12:38
[2020-07-08] MEDS: traZODone 100 MG (DESYREL) TAB PO SCH (22:17)
[2020-07-09] MEDS: HYDROcodone/APAP 10 MG/325 MG (LORTAB) TAB PO PRN ×5 (02:29→21:49)
[2020-07-09 04:00] VITALS: BP 116/65
[2020-07-09] MEDS: RIVAROXABAN 15 MG TABLET (XARELTO) PO SCH ×2 (06:32→19:54)
[2020-07-09 07:19] VITALS: BP 118/74
[2020-07-09] MEDS: GABAPENTIN 300 MG (NEURONTIN) CAP PO SCH ×3 (08:30→21:14)
[2020-07-09] MEDS: SENNA W/DOCUSATE (SENOKOT S) TABLET PO SCH ×2 (08:30→21:14)
[2020-07-09] MEDS: VRAYLAR 3 MG CAPSULE PO SCH (08:30)
[2020-07-09] MEDS: NICOTINE 21 MG (NICODERM) PATCH TD SCH (08:30)
[2020-07-09] MEDS: DOCUSATE SODIUM 100 MG (COLACE) CAP PO SCH (08:30)
[2020-07-09] MEDS: NICOTINE PATCH REMOVAL TP SCH (08:30)
--- NOTE | 2020-07-09 09:45 | Progress Note - Hospitalist ---
Subjective HPI/CC On Admission Date Seen by Provider: Jul 09, 2020 Time Seen by Provider: 09:45 Subjective/Events-last exam Pt had ran out of his Xarelto for three weeks Right leg pain limits walking Will order PT and OT Will provide a walker He works at [employer] and makes the [employer] Lifetime anticoagulant required Spoke with cardiology, no option to decrease the clot burden of the right leg Review of Systems General: Fatigue, Malaise Musculoskeletal: leg pain Neurological: Weakness Objective Exam Vital Signs Vital Signs Date Time Temp Pulse Resp B/P (MAP) Pulse Ox O2 Delivery O2 Flow Rate FiO2 07/09/20 19:46 36.6 83 18 106/71 (83) 95 Room Air 07/09/20 10:47 21 Capillary Refill : Less Than 3 SecondsLess Than 3 Seconds General Appearance: No Apparent Distress, WD/WN Respiratory: Chest Non Tender, Lungs Clear, Normal Breath Sounds, No Accessory Muscle Use, No Respiratory Distress Extremity: Normal Capillary Refill, Normal Inspection, Normal Range of Motion, Non Tender, No Calf Tenderness, No Pedal Edema, Other (right leg pain to palpation) Results/Procedures Lab Patient resulted labs reviewed. Assessment/Plan Assessment and Plan Assess & Plan/Chief Complaint Assessment: Right leg DVT PE acute Severe leg pain Smoker Plan: Xarelto Smoking cessation counseled PT and OT Walker to be provided Clinical Quality Measures DVT/VTE Risk/Contraindication: Risk Factor Score Per Nursin RFS Level Per Nursing on Admit: 3=High JODY RAZA DO Jul 09, 2020 09:45
--- NOTE | 2020-07-09 10:04 | Diagnostic Imaging Report ---
PROCEDURE: US right lower extremity venous. TECHNIQUE: Multiple real-time grayscale images were obtained over the right lower extremity in various projections. Additional spectral analysis and color Doppler duplex images were also obtained. INDICATION: DVT. Correlation is made with recent venous Doppler from 07/04/2020. There continues to be extensive occlusive DVT throughout the right lower extremity deep venous system. This extends from the right common femoral vein involves the superficial femoral and popliteal veins as well as the veins of the calf. No fluid collection is seen. IMPRESSION: Continued extensive right lower extremity DVT. Dictated by: Dictated on workstation # [id number]
[2020-07-09 10:47] VITALS: BP 118/74
[2020-07-09 11:12] VITALS: BP 111/72
--- NOTE | 2020-07-09 12:52 | Physical Therapy Evaluation ---
PT Evaluation-General Medical Diagnosis Admission Date Jul 04, 2020 at 14:47 Medical Diagnosis: right leg DVT Onset Date: Jul 04, 2020 Therapy Diagnosis Therapy Diagnosis: impaired mobility, strength, endurance Height/Weight Height (Feet): 5 Height (Inches): 10 Weight (Pounds): 190 Precautions Precautions/Isolations: Standard Precautions Weight Bear Status Right Lower Extremity: Right Weight Bearing/Tolerated Left Lower Extremity: Left Weight Bearing/Tolerated Referral Physician: Martha Jauregui DO Reason for Referral: Evaluation/Treatment Medical History Additional Medical History Patient Social History Marrital Status: single 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 7-8 beers and a shot or two.) Recreational Drug Use: Yes Drug of Choice: weed Smoking Status: Current Everyday Smoker (1 pk/day for 14 yrs.) Type Used: Cigarettes 2nd Hand Smoke Exposure: Yes Physical Abuse Screen: No Sexual Abuse: No Recent Foreign Travel: No Contact w/other who traveled: No Recent Hopitalizations: No Recent Infectious Disease Expo: No Immunizations Up To Date Tetanus Booster (TDap): Unknown Pediatric: Yes Seasonal Allergies Seasonal Allergies: No Surgeries Yes (R WRIST) Orthopedic Respiratory No Cardiovascular Yes Deep Vein Thrombosis Neurological No Genitourinary No Gastrointestinal No Musculoskeletal No Endocrine History of Endocrine Disorders: No HEENT History of HEENT Disorders: No Cancer No Psychosocial History of Psychiatric Problem: Yes Behavioral Health Disorders: Bipolar Reviewed History: Yes Social History Home: Single Level Current Living Status: Entry Into Home: Stairs With Railing PT Steps Into Home: 2 Patient lives with his brother, patient states his handrail on stairs is not sturdy. Prior Prior Level of Function SCALE: Activities may be completed with or without assistive devices. 1-Loejtyndqd-mahhttu completes the activity by him/herself with no assistance from a helper. 5-Set-up or Clean-up Assistance-helper sets up or cleans up; patient completes activity. [place] assists only prior to or following the activity. 4-Supervision or Touching Assistance-helper provides verbal cues and/or touching/steadying and/or contact guard assistance as patient completes activity. Assistance may be provided throughout the activity or intermittently. 3-Partial/Moderate Assistance-helper does LESS THAN HALF the effort. Cowley lifts, holds or supports trunk or limbs, but provides less than half the effort. 2-Substantial/Maximal Assistance-helper does MORE THAN HALF the effort. [place] lifts or holds trunk or limbs and provides more than half the effort. 6-Swdtdafed-mhxylz does ALL the effort. Patient does none of the effort to complete the activity. Or, the assistance of 2 or more helpers is required for the patient to complete the activity. If activity was not attempted, code reason: 7-Patient Refused. 9-Not Applicable-not attempted and the patient did not perform the activity before the current illness, exacerbation or injury. 10-Not Attempted due to Environmental Limitations-(lack of equipment, weather restraints, etc.). 88-Not Attempted due to Medical Conditions or Safety Concerns. Bed Mobility: 6 Transfers (B,C,W/C): 6 Gait: 6 Stairs: 6 Indoor Mobility (Ambulation): Independent Stairs: Independent PT Evaluation-Current Subjective Patient in bed pre tx, agrees to PT, has 7/10 pain in right leg. Pt/Family Goals to be independent at home Objective Patient Orientation: Person, Place, Situation ROM/Strength ROM Lower Extremities limited in RLE due to pain Strength Lower Extremities 3/5 gross RLE due to pain Sensory Vision: Functional Hearing: Functional Sensation Right Lower Extremit: Intact Sensation Left Lower Extremity: Intact Transfers Roll Left to Right (QC): 6 Sit to Lying (QC): 6 Lying to Sitting/Side of Bed(Q: 6 Sit to Stand (QC): 4 Chair/Dzm-np-Qjofc Xfer(QC): 4 SBA with sit to stand and transfers using a rolling walker, cues for direction Gait Does the Patient Walk?: Yes Mode of Locomotion: Walk Anticipated Mode of Locomotion: Walk Walk 10 feet (QC): 4 Walk 50 ft with 2 Turns(QC): 4 Distance: 50' Gait Assistive Device: FWW Comments/Gait Description Patient ambulated 50' with a rolling walker with SBA. He ambulates slowly but is able to ambulate with less pain since he can bear some weight through his arms. Balance Sitting Static: Normal Sitting Dynamic: Normal Standing Static: Good Standing Dynamic: Good Treatment supine BLE exercises x20 (AP, QS, GS). Assessment/Needs Patient has impaired mobility, strength, endurance. He needs a rolling walker or could use axillary crutches also. Patient states he has experience with crutches. Rehab Potential: Fair PT Director Of Plant Operations Goals Shelter Goals PT Shelter Goals Time Frame: Jul 16, 2020 Roll Left & Right (QC): 6 Sit to Lying (QC): 6 Lying-Sitting on Side/Bed(QC): 6 Sit to Stand (QC): 6 Chair/Ete-ff-Bztrl Xfer(QC): 6 Walk 10 feet (QC): 6 Walk 50ft with 2 Turns (QC): 6 Walk 150 ft (QC): 6 PT Plan Problem List Problem List: Activity Tolerance, Functional Strength, Safety, Balance, Gait, Transfer, ROM Treatment/Plan Treatment Plan: Continue Plan of Care Treatment Plan: Education, Functional Activity Haylee, Functional Strength, Gait, Safety, Therapeutic Exercise, Transfers Treatment Duration: Jul 16, 2020 Frequency: 6 times per week Estimated Hrs Per Day: .25 hour per day Patient and/or Family Agrees t: Yes Safety Risks/Education Patient Education: Gait Training, Transfer Techniques, Correct Positioning, Safety Issues Teaching Recipient: Patient Teaching Methods: Demonstration, Discussion Response to Teaching: Reinforcement Needed Discharge Recommendations Plan Patient will perform bed mobility and transfer training, balance and endurance training, functional strengthening, stair training, gait training, and education, to improve functional mobility and independence at home. Therapy Discharge Recommendati: Home & Family Time/GCodes Time In: 1135 Time Out: 1148 Total Billed Treatment Time: 13 Total Billed Treatment 1 visit LARISSA CHANCE PT Jul 09, 2020 12:52
--- NOTE | 2020-07-09 13:55 | NUR ---
CM/SS visited with the patient for discharge planning. Plan: The patient will discharge home with crutches from [facility]. The patient's primary care nurse came to this sw regarding assistive devices upon discharge. Physical Therapy evaluated patient and stated he would be able to use crutches or a front wheeled walker. CM/SS visited with the patient and discussed the different options between crutches and walker. He stated that he would prefer to have crutches. CM/SS contacted [facility] to find out pricing. They stated for a pair it would be $55 dollars, no script needed and will deliver. CM/SS contacted [facility]. They do not have any in stock; however he could order online to be delivered to the store for [employer]. [facility] pharmacy, none in stock. CM/SS contacted [facility] pharmacy. They report having a program that patient's can get loaned crutches with a 32.00 dollar deposit. Once returned they get the full amount paid back. The primary care nurse reports the patient would like to go through [facility] pharmacy. No further needs at this time.
[2020-07-09 15:30] VITALS: BP 132/78
--- NOTE | 2020-07-09 15:32 | Occupational Therapy Eval ---
OT Evaluation-General/PLF Medical Diagnosis Admission Date Jul 04, 2020 at 14:47 Medical Diagnosis: right leg DVT Onset Date: Jul 04, 2020 Therapy Diagnosis Therapy Diagnosis: Decreased ADL status Height/Weight Height (Feet): 5 Height (Inches): 10 Weight (Pounds): 190 Precautions Precautions/Isolations: Standard Precautions Weight Bear Status Weight Bearing Restriction: Weight Bearing/Tolerated Location Restriction: R LE Referral Physician: Martha Jauregui DO Referral Reason: Activity Tolerance, Self Care, Evaluation/Treatment, Strengthening/ROM Medical History Current History DVT 07/06 admit RLE calf. Reviewed History: Yes Social History Home: Single Level Current Living Status: brother Entry Into Home: Stairs With Railing Steps Into Home: 2 ADL-Prior Level of Function SCALE: Activities may be completed with or without assistive devices. 1-Hfotlbbqlo-kututsl completes the activity by him/herself with no assistance from a helper. 5-Set-up or Clean-up Assistance-helper sets up or cleans up; patient completes activity. [place] assists only prior to or following the activity. 4-Supervision or Touching Assistance-helper provides verbal cues and/or touching/steadying and/or contact guard assistance as patient completes activity. Assistance may be provided throughout the activity or intermittently. 3-Partial/Moderate Assistance-helper does LESS THAN HALF the effort. [place] lifts, holds or supports trunk or limbs, but provides less than half the effort. 2-Substantial/Maximal Assistance-helper does MORE THAN HALF the effort. [place] lifts or holds trunk or limbs and provides more than half the effort. 6-Ashgsybaw-kcwvou does ALL the effort. Patient does none of the effort to complete the activity. Or, the assistance of 2 or more helpers is required for the patient to complete the activity. If activity was not attempted, code reason: 7-Patient Refused. 9-Not Applicable-not attempted and the patient did not perform the activity before the current illness, exacerbation or injury. 10-Not Attempted due to Environmental Limitations-(lack of equipment, weather restraints, etc.). 88-Not Attempted due to Medical Conditions or Safety Concerns. ADL PLOF Comments Pt was IND without use of AD. Self Care: Independent Functional Cognition: Independent Occupation: cook Drive Self: No OT Current Status Subjective Pt seen in bed. Alert/ oriented. Pt states 5/10 pain in back of leg. Pt states has been completing stretches PT showed him. Pt agrees to OT eval/ treat. Mental Status/Objective Patient Orientation: Normal For Age Current Glasses/Contacts: No Hearing Aids: No Dentures/Partials: No Hand Dominance: Left Upper Extremity ROM WFL BUE Upper Extremity Coordination WFL BUE Upper Extremity Sensation WFL BUE Upper Extremity Strength WFL BUE Edema: slight edema RLE ADL-Treatment Eating (QC): 6 Oral Hygiene (QC): 6 Upper Body Dressing (QC): 6 Lower Body Dressing (QC): 4 (SBA per pt. Pt showed director reactor projects/ demonstrated for RLE dressing due to pain. ) On/Off Footwear (QC): 4 (SBA. Though 8/10 pain in RLE during this task. Pt educated on use of sock aide and director reactor projects) Toileting Hygiene (QC): 4 (SUP per clinical reasoning) Other Treatments Pt seen in bed. Alert/ oriented. Pt educated on OT role. Pt states hx and home env. Pt agrees to OT. Bed mob with SBA. Pt doffs/ dons R sock with SBA, states increased pain in R hip. Pt brought in sock aide/ director reactor projects for LB/ footwear dressing. Pt return demonstrates sock aide on L foot. Pt completes sit to stand and ambulates to chair with CGA/ no AD. Pt reclines in chair, all needs met, call light in reach. Pt educated on 20-30 mmHg stockings once DVT no longer issue for continued compression in RLE. Pt agrees. Education OT Patient Education: Correct positioning, Progress toward Goal/Update tx plan, Safety issues, Use of adapted equipment Teaching Methods: Demonstration, Discussion Response to Teaching: Verbalize Understanding, Return Demonstration OT Custodial Goals Custodial Goals 1=Demonstrate adherence to instructed precautions during ADL tasks. 2=Patient will verbalize/demonstrate understanding of assistive devices/modifications for ADL. 3=Patient will improve strength/tolerance for activity to enable patient to perform ADL's. OT Education/Plan Problem List/Assessment Assessment: No Skilled OT Needs ID'd Discharge Recommendations Plan/Recommendations: Discharge/Goals Met Therapy Discharge Recommendati: Home & Family Treatment Plan/Plan of Care Treatment,Training & Education: Yes Patient would benefit from OT for education, treatment and training to promote independence in ADL's, mobility, safety and/or upper extremity function for ADL's. Plan of Care: OTHER (eval and d/c. ) Treatment Duration: Jul 09, 2020 Frequency: 1 time per week (eval and d/c) Rehab Potential: Fair Time/GCodes Start Time: 15:02 Stop Time: 15:15 Total Time Billed (hr/min): 13 Billed Treatment Time 1, EVL (13) d/c. ED SCHROEDER OTR Jul 09, 2020 15:32
[2020-07-09 19:46] VITALS: BP 106/71
[2020-07-09] MEDS: traZODone 100 MG (DESYREL) TAB PO SCH (21:14)
[2020-07-10 00:40] VITALS: BP 108/68
[2020-07-10 03:45] VITALS: BP 113/65
[2020-07-10] MEDS: HYDROcodone/APAP 10 MG/325 MG (LORTAB) TAB PO PRN ×3 (03:53→12:22)
[2020-07-10 05:20] LABS: BASOPHILS % (AUTO) 0 % (0-10); EOSINOPHILS # (AUTO) 0.3 10^3/uL (0.0-0.3); EOSINOPHILS % (AUTO) 4 % (0-10); HEMATOCRIT 38 % (40-54); HEMOGLOBIN 12.5 G/DL (13.3-17.7); LYMPHOCYTES # (AUTO) 1.2 X 10^3 (1.0-4.0); LYMPHOCYTES % (AUTO) 18 % (12-44); MEAN CORPUSCULAR HEMOGLOBIN 31 PG (25-34); MEAN CORPUSCULAR HGB CONC 33 G/DL (32-36); MEAN CORPUSCULAR VOLUME 93 FL (80-99); MEAN PLATELET VOLUME 9.6 FL (7.4-10.4); MONOCYTES # (AUTO) 1.1 X 10^3 (0.0-1.0); MONOCYTES % (AUTO) 17 % (0-12); NEUTROPHILS # (AUTO) 3.9 X 10^3 (1.8-7.8); NEUTROPHILS % (AUTO) 61 % (42-75); PLATELET COUNT 242 10^3/uL (130-400); RED CELL DISTRIBUTION WIDTH 12.8 % (10.0-14.5); WHITE BLOOD COUNT 6.5 10^3/uL (4.3-11.0)
[2020-07-10 05:34] LABS: ALBUMIN 3.4 GM/DL (3.2-4.5); CHLORIDE 98 MMOL/L (98-107); POTASSIUM 4.2 MMOL/L (3.6-5.0); SODIUM 135 MMOL/L (135-145)
[2020-07-10 05:37] LABS: GLUCOSE 93 MG/DL (70-105)
[2020-07-10 05:38] LABS: BILIRUBIN,TOTAL 0.7 MG/DL (0.1-1.0); CARBON DIOXIDE 26 MMOL/L (21-32)
[2020-07-10 05:40] LABS: ALKALINE PHOSPHATASE 149 U/L (40-136); CREATININE SERUM 0.84 MG/DL (0.60-1.30); GFR ESTIMATED > 60
[2020-07-10 05:41] LABS: BUN/CREATININE RATIO 18
[2020-07-10 05:43] LABS: ALANINE AMINOTRANSFERASE 58 U/L (0-55)
[2020-07-10] MEDS: RIVAROXABAN 15 MG TABLET (XARELTO) PO SCH (06:37)
[2020-07-10 08:05] VITALS: BP 113/74
[2020-07-10] MEDS: VRAYLAR 3 MG CAPSULE PO SCH (08:30)
[2020-07-10] MEDS: DOCUSATE SODIUM 100 MG (COLACE) CAP PO SCH (08:32)
[2020-07-10] MEDS: GABAPENTIN 300 MG (NEURONTIN) CAP PO SCH ×2 (08:32→12:22)
[2020-07-10] MEDS: NICOTINE 21 MG (NICODERM) PATCH TD SCH (08:32)
[2020-07-10] MEDS: SENNA W/DOCUSATE (SENOKOT S) TABLET PO SCH (08:32)
[2020-07-10] MEDS: NICOTINE PATCH REMOVAL TP SCH (08:32)
--- NOTE | 2020-07-10 09:48 | Physical Therapy Progress Note ---
Therapy Progress Note Patient reports he is up ad lobo in room with FWW and will dismiss to home on this date with crutch use. Patient declined PT stating," I feel comfortable with FWW and crutches." PT to dismiss patient at this time. 1 visit MARYELLEN BRANHAM PT Jul 10, 2020 09:48
[2020-07-10] MEDS ORDERED: SENN-20 PO (09:53)
[2020-07-10] MEDS ORDERED: RIVA1TAB PO (09:53)
[2020-07-10] MEDS ORDERED: ACHYD1T PO (09:53)
--- NOTE | 2020-07-10 09:56 | Discharge Summary ---
Discharge Summary Hospital Course Was the Problem List Reviewed?: Yes Problems/Dx: (1) Right leg DVT Status: Acute Qualifiers: Qualified Codes: I82.491 - Acute embolism and thrombosis of other specified deep vein of right lower extremity (2) Bilateral pulmonary embolism Status: Acute (3) Blood clotting disorder Status: Chronic (4) Right leg pain Status: Acute Hospital Course Date of Admission: Jul 04, 2020 at 14:47 Admission Diagnosis : Family Physician/Provider: Date of Discharge: 07/10/20 Discharge Diagnosis: DVT, PE Hospital Course: Hospital course: Pt had a lengthy hospital course for a full seven days when he presented with right leg swelling and SOB found to have a large clot burden DVT on the right lower extremity and B/L pulmonary emboli. He had just stopped Xarelto three weeks ago because he couldnt get it filled. He had been on Xarelto for the past year but no hyper-coagulable labs done but apparently he has some sort of hyper-coagable status. Smoking cessation was counseled. Repeat ultrasound showed clot burden but there was no evidence of any arterial insufficiency so he was maintained on Heparin for a full four days then transitioned to Xarelto and he was able to get up and around and was discharged in improved condition and I sent all of his medications to the pharmacy. Labs and Pending Lab Test: Laboratory Tests 07/10/20 04:45: White Blood Count 6.5, Red Blood Count 4.09L, Hemoglobin 12.5L, Hematocrit 38L, Mean Corpuscular Volume 93, Mean Corpuscular Hemoglobin 31, Mean Corpuscular Hemoglobin Concent 33, Red Cell Distribution Width 12.8, Platelet Count 242, Mean Platelet Volume 9.6, Neutrophils (%) (Auto) 61, Lymphocytes (%) (Auto) 18, Monocytes (%) (Auto) 17H, Eosinophils (%) (Auto) 4, Basophils (%) (Auto) 0, Neutrophils # (Auto) 3.9, Lymphocytes # (Auto) 1.2, Monocytes # (Auto) 1.1H, Eosinophils # (Auto) 0.3, Basophils # (Auto) 0.0, Sodium Level 135, Potassium Level 4.2, Chloride Level 98, Carbon Dioxide Level 26, Anion Gap 11, Blood Urea Nitrogen 15, Creatinine 0.84, Estimat Glomerular Filtration Rate > 60, BUN/Creatinine Ratio 18, Glucose Level 93, Calcium Level 9.0, Corrected Calcium 9.5, Total Bilirubin 0.7, Aspartate Amino Transf (AST/SGOT) 41H, Alanine Aminotransferase (ALT/SGPT) 58H, Alkaline Phosphatase 149H, Total Protein 7.0, Albumin 3.4 Home Meds Active Xarelto Starter Pack (Rivaroxaban) 1 Each Tab.ds.pk 1 Each PO UD 15mg by mouth twice daily x 21 days then 20mg by mouth daily Senna-Time S Tablet (Sennosides/Docusate Sodium) 1 Each Tablet 1 Ea PO BID HYDROcodone/APAP 10/325 TABLET (Acetaminophen/Hydrocodone Bitart) 1 Ea Tab 1 Ea PO Q4HR PRN Reported Tylenol (Acetaminophen) 325 Mg Capsule 650 Mg PO Q6H PRN Trazodone HCl 100 Mg Tablet 100-200 Mg PO HS Vraylar (Cariprazine Hydrochloride) 3 Mg Capsule 3 Mg PO DAILY Xarelto (Rivaroxaban) 20 Mg Tablet 20 Mg PO DAILY LAST FILLED 05-28-2020 #30/ DAY SUPPLY Assessment/Pt Instructions [facility] in one week Discharge Planning: <30 minutes discharge planning Discharge Instructions Activity as Tolerated: Yes Discharge Physical Examination Vital Signs Vital Signs Date Time Temp Pulse Resp B/P (MAP) Pulse Ox O2 Delivery O2 Flow Rate FiO2 07/10/20 08:05 36.9 80 18 113/74 (87) 94 Room Air 07/09/20 10:47 21 General Appearance: No Apparent Distress, WD/WN Cardiovascular: Regular Rate, Rhythm, No Edema, No Gallop, No JVD, No Murmur, Normal Peripheral Pulses Neurologic/Psychiatric: Alert, Oriented x3, No Motor/Sensory Deficits, Normal Mood/Affect Allergies: Coded Allergies: ibuprofen (Unverified Allergy, Unknown, 04/30/15) Discharge Summary Date of Admission Jul 04, 2020 at 14:47 Date of Discharge Discharge Date: Jul 10, 2020 Discharge Diagnosis Assessment: Right leg DVT PE acute Severe leg pain Smoker Plan: Xarelto Smoking cessation counseled PT and OT Walker to be provided (1) Right leg DVT Status: Acute Assessment & Plan: - Dr Alonso ([facility], [place]) was consulted out of ER and patient is not a candidate for thrombectomy, recommends starting heparin drip and close monitoring Qualifiers: Qualified Codes: I82.491 - Acute embolism and thrombosis of other specified deep vein of right lower extremity (2) Bilateral pulmonary embolism Status: Acute (3) Blood clotting disorder Status: Chronic (4) Right leg pain Status: Acute Assessment & Plan: - Started on [place] and has Fentynl for breakthru Clinical Quality Measures DVT/VTE Risk/Contraindication: Risk Factor Score Per Nursin RFS Level Per Nursing on Admit: 3=High JODY RAZA DO Jul 10, 2020 09:56
[2020-07-10 11:42] VITALS: BP 106/75
[2020-07-10 13:40] VITALS: BP 106/75
[2020-07-29] MEDS ORDERED: RIVAROXABAN 20 MG TABLET (XARELTO) PO SCH (17:00)
== END 2020-07-10 13:40 | disposition home or self-care (01) | DRG 299 ==
LOC: EDUNIT# 11:59 → ER 12:00 → 4TH 14:47
PROVIDERS: ADMIT Family Medicine; ATTEND Internal Medicine
DX: I82.401 Acute embolism and thrombosis of unspecified deep veins of right lower extremity (principal); I26.99 Other pulmonary embolism without acute cor pulmonale; D68.9 Coagulation defect, unspecified; F17.210 Nicotine dependence, cigarettes, uncomplicated; F31.9 Bipolar disorder, unspecified; Z79.01 Long term (current) use of anticoagulants
CPT/HCPCS: 36415; 71275; 80048; 80053; 85025; 85730; 94640; 94760; 96365

== ENCOUNTER 2021-01-11 14:24 | Emergency (ER) | payer SELFPAY ==
[~2021-01-11] VITALS: Ht 175 cm; Wt 91.0 kg
[~2021-01-11 14:24] MED LIST changes: +ACET325C7 PO; +ACHYD1T PO; +CARI3CAP PO; +RIVA1TAB PO; +RIVA20TA PO; +SENN-20 PO; +TRAZ-227 PO
[2021-01-11] MEDS ORDERED: HYDROcodone/APAP 5 MG/325 MG (LORTAB) TAB PO ONE (14:45)
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
--- NOTE | 2021-01-11 16:10 | Diagnostic Imaging Report ---
INDICATION: Right leg pain Right leg venous Doppler study performed in the routine fashion with color flow Doppler and waveform analysis. There is partially occlusive thrombus in the common femoral vein, profunda femoris vein, and SFV as well as in the popliteal vein. The calf veins are patent. The findings are similar to the prior study of 07/09/2020. IMPRESSION: Long segment extensive nonocclusive thrombus in the common femoral vein, SFV, and popliteal vein with similar appearance to the previous study. Dictated by: Dictated on workstation # [id number]
[2021-01-11] MEDS ORDERED: ACHD5005 PO (16:43)
[2021-01-11] MEDS ORDERED: APIX5TAB PO (16:43)
[2021-01-11 16:50] VITALS: BP 124/75
== END 2021-01-11 16:50 | disposition home or self-care (01) ==
LOC: EDUNIT# 14:24 → ER 14:26
DX: I82.411 Acute embolism and thrombosis of right femoral vein (principal); F17.210 Nicotine dependence, cigarettes, uncomplicated; Z88.6 Allergy status to analgesic agent; Z82.61 Family history of arthritis; Z82.49 Family history of ischemic heart disease and other diseases of the circulatory system; Z79.01 Long term (current) use of anticoagulants
CPT/HCPCS: 73590

== ENCOUNTER 2021-05-31 18:25 | Emergency (ER) | payer SELFPAY ==
[~2021-05-31] VITALS: Ht 175 cm; Wt 93.0 kg
[~2021-05-31 18:25] MED LIST changes: +ACHD5005 PO; +APIX5TAB PO
[2021-05-31 19:27] LABS: BASOPHILS % (AUTO) 0 % (0-10); EOSINOPHILS # (AUTO) 0.2 10^3/uL (0.0-0.3); EOSINOPHILS % (AUTO) 3 % (0-10); HEMATOCRIT 44 % (40-54); HEMOGLOBIN 15.2 g/dL (13.3-17.7); LYMPHOCYTES # (AUTO) 1.6 10^3/uL (1.0-4.0); LYMPHOCYTES % (AUTO) 28 % (12-44); MEAN CORPUSCULAR HEMOGLOBIN 33 pg (25-34); MEAN CORPUSCULAR HGB CONC 34 g/dL (32-36); MEAN CORPUSCULAR VOLUME 95 fL (80-99); MEAN PLATELET VOLUME 9.5 fL (9.0-12.2); MONOCYTES # (AUTO) 0.5 10^3/uL (0.0-1.0); MONOCYTES % (AUTO) 9 % (0-12); NEUTROPHILS # (AUTO) 3.5 10^3/uL (1.8-7.8); NEUTROPHILS % (AUTO) 60 % (42-75); PLATELET COUNT 171 10^3/uL (130-400); WHITE BLOOD COUNT 5.8 10^3/uL (4.3-11.0)
[2021-05-31 19:40] LABS: CHLORIDE 102 MMOL/L (98-107); SODIUM 137 MMOL/L (135-145)
[2021-05-31 19:42] LABS: GLUCOSE 89 MG/DL (70-105)
[2021-05-31 19:43] LABS: CARBON DIOXIDE 24 MMOL/L (21-32)
[2021-05-31 19:45] LABS: CREATININE SERUM 1.01 MG/DL (0.60-1.30); FIBRIN DEGRADATION PRODUCTS 0.36 UG/ML (0.00-0.49); GFR ESTIMATED > 60; INR 1.2 (0.8-1.4)
[2021-05-31 19:46] LABS: BUN/CREATININE RATIO 10
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
[2021-05-31] MEDS ORDERED: ACHD5005 PO ×2 (20:17→20:18)
[2021-05-31 20:22] VITALS: BP 138/87
== END 2021-05-31 20:22 | disposition home or self-care (01) ==
LOC: EDUNIT# 18:25 → ER 18:26
DX: I87.2 Venous insufficiency (chronic) (peripheral) (principal); R60.9 Edema, unspecified; F17.210 Nicotine dependence, cigarettes, uncomplicated; Z86.718 Personal history of other venous thrombosis and embolism; Z86.711 Personal history of pulmonary embolism; Z79.01 Long term (current) use of anticoagulants
CPT/HCPCS: 36415; 80048; 85025; 85379; 85610; 85730; 99283

== ENCOUNTER 2022-03-18 12:24 | Emergency (ER) | payer SELFPAY ==
[~2022-03-18] VITALS: Ht 175 cm; Wt 98.0 kg
[~2022-03-18 12:24] MED LIST changes: -SULF1TAB35 PO; +SULF1TAB38 PO
[2022-03-18] MEDS ORDERED: HYDROcodone/APAP 5 MG/325 MG (LORTAB) TAB PO ONE (14:15)
--- NOTE | 2022-03-18 14:15 | ED Lower Extremity ---
General Chief Complaint: Lower Extremity Stated Complaint: R LEG/GROIN PAIN Nursing Triage Note: PT TO FT1 PER W/C PT CO OF DISCOMFORT IN R LEG HAS FREQUENT HX OF BLOOD CLOTS. STATES HAS SWELLING AND INCREASED PAIN. Source: patient Exam Limitations: no limitations History of Present Illness Date Seen by Provider: Mar 18, 2022 Time Seen by Provider: 14:09 Initial Comments To ER with reports of right thigh and calf pain that is chronic but became much worse last night after working. He has a history of DVT in the left leg. He is on Xarelto 20 mg daily. He just moved in with his mother because he states that he quit drinking alcohol as heavily. He continues to smoke about a pack per day . No fevers or chills no injury. Onset: yesterday Severity: moderate Pain/Injury Location: right leg, right thigh Method of Injury: unknown Modifying Factors: Worse With Movement Allergies and Home Medications Allergies Coded Allergies: ibuprofen (Unverified Allergy, Unknown, 04/30/15) Patient Home Medication List Home Medication List Reviewed: Yes Apixaban (Eliquis) 5 Mg Tablet, 5 MG PO BID Prescribed by: TASH ALEXANDRE on 01/11/21 164 Hydrocodone/Acetaminophen (Hydrocodone-Acetamin 5-325 mg) 1 Each Tablet, 1 TAB PO Q6H PRN for PAIN-MODERATE (5-7) Prescribed by: TASH ALEXANDRE on 01/11/21 1643 Hydrocodone/Acetaminophen (Hydrocodone-Acetamin 5-325 mg) 1 Each Tablet, 1 TAB PO Q6H PRN for PAIN-MODERATE (5-7) Prescribed by: TASH ALEXANDRE on 05/31/212018 Hydrocodone/Acetaminophen (Hydrocodone-Acetamin 5-325 mg) 5 Mg-325 Mg Tablet, 1 TAB PO Q4H PRN for PAIN-MODERATE (5-7) Prescribed by: EVA GAMINO on 03/18/22 1519 Rivaroxaban (Xarelto Starter Pack) 1 Each Tab.ds.pk, 1 EACH PO UD Prescribed by: JODY RAZA on 07/10/20 0953 Trazodone HCl (Trazodone HCl) 100 Mg Tablet, 100-200 MG PO HS, (Reported) Entered as Reported by: PUSHPA OWUSU on 07/04/20 1553 Review of Systems Constitutional: see HPI EENTM: see HPI Respiratory: no symptoms reported Cardiovascular: no symptoms reported Genitourinary: no symptoms reported Musculoskeletal: see HPI Skin: no symptoms reported Past Wbiomtv-Iotfal-Mbxovk Hx Immunizations Up To Date Tetanus Booster (TDap): Unknown PED Vaccines UTD: Yes Seasonal Allergies Seasonal Allergies: No Past Medical History Surgeries: Yes (R WRIST) Orthopedic Respiratory: No Cardiac: Yes Deep Vein Thrombosis Neurological: No Genitourinary: No Gastrointestinal: No Musculoskeletal: No Endocrine: No HEENT: No Cancer: No Psychosocial: Yes Bipolar Integumentary: No Blood Disorders: No Adverse Reaction/Blood Tranf: No Family Medical History Alcoholism 19 FATHER 19 MOTHER Arthritis Asthma 19 MOTHER Cardiovascular disease 19 FATHER 19 MOTHER Coronary thrombosis 19 FATHER 19 MOTHER Hypertension 19 FATHER Parkinson's disease 19 FATHER 19 MOTHER Respiratory disorder 19 MOTHER Seizure disorder Severe allergy G8 BROTHER Visual disorder 19 MOTHER No Pertinent Family Hx Physical Exam Vital Signs Vital Signs - First Documented 03/18/22 14:05 Temp 36.7 Pulse 88 Resp 18 B/P (MAP) 147/92 (110) Pulse Ox 97 Capillary Refill : Less Than 3 Seconds Height, Weight, BMI Height: 5'10" Weight: 190lbs. oz. 86.866229cv; 32.00 BMI Method:Stated General Appearance: WD/WN, no apparent distress, other (Chronically ill appears older than stated age) HEENT: PERRL/EOMI, normal ENT inspection Neck: non-tender, full range of motion Respiratory: no respiratory distress, no accessory muscle use Hips: bilateral hip non-tender, bilateral hip normal inspection Legs: right leg other (Right leg is tender to palpation of the anteromedial right thigh. There is no palpable inguinal adenopathy. No open wounds. The overlying skin is normal. Also has some pain to the posterior right calf with some chronic darkening of the skin bilateral lower extremities. There is a strong dorsalis pedis pulse. ) Knees: bilateral knee non-tender, bilateral knee normal inspection, bilateral knee normal range of motion Ankles: bilateral ankle non-tender, bilateral ankle normal inspection, bilateral ankle normal range of motion Feet: bilateral foot non-tender, bilateral foot normal inspection, bilateral foot normal range of motion Neurologic/Psychiatric: alert, normal mood/affect, oriented x 3 Skin: normal color, warm/dry Progress/Results/Core Measures Results/Orders Lab Results Laboratory Tests Test 03/18/22 14:42 Range/Units White Blood Count 6.5 4.3-11.0 10^3/uL Red Blood Count 5.41 4.30-5.52 10^6/uL Hemoglobin 16.6 13.3-17.7 g/dL Hematocrit 49 40-54 % Mean Corpuscular Volume 91 80-99 fL Mean Corpuscular Hemoglobin 31 25-34 pg Mean Corpuscular Hemoglobin Concent 34 32-36 g/dL Red Cell Distribution Width 12.7 10.0-14.5 % Platelet Count 189 130-400 10^3/uL Mean Platelet Volume 9.6 9.0-12.2 fL Immature Granulocyte % (Auto) 0 % Neutrophils (%) (Auto) 67 42-75 % Lymphocytes (%) (Auto) 20 12-44 % Monocytes (%) (Auto) 9 0-12 % Eosinophils (%) (Auto) 3 0-10 % Basophils (%) (Auto) 1 0-10 % Neutrophils # (Auto) 4.4 1.8-7.8 10^3/uL Lymphocytes # (Auto) 1.3 1.0-4.0 10^3/uL Monocytes # (Auto) 0.6 0.0-1.0 10^3/uL Eosinophils # (Auto) 0.2 0.0-0.3 10^3/uL Basophils # (Auto) 0.0 0.0-0.1 10^3/uL Immature Granulocyte # (Auto) 0.0 0.0-0.1 10^3/uL Sodium Level 136 135-145 MMOL/L Potassium Level 4.0 3.6-5.0 MMOL/L Chloride Level 100 98-107 MMOL/L Carbon Dioxide Level 22 21-32 MMOL/L Anion Gap 14 5-14 MMOL/L Blood Urea Nitrogen 11 7-18 MG/DL Creatinine 1.07 0.60-1.30 MG/DL Estimat Glomerular Filtration Rate 95 BUN/Creatinine Ratio 10 Glucose Level 101 70-105 MG/DL Calcium Level 9.7 8.5-10.1 MG/DL Corrected Calcium 8.5-10.1 MG/DL Total Bilirubin 1.2 H 0.1-1.0 MG/DL Aspartate Amino Transf (AST/SGOT) 50 H 5-34 U/L Alanine Aminotransferase (ALT/SGPT) 77 H 0-55 U/L Alkaline Phosphatase 116 40-136 U/L C-Reactive Protein High Sensitivity 0.57 H 0.00-0.50 MG/DL Total Protein 7.8 6.4-8.2 GM/DL Albumin 4.7 H 3.2-4.5 GM/DL My Orders Orders - EVA GAMINO APRN Cbc With Automated Diff (03/18/22 14:08) Comprehensive Metabolic Panel (03/18/22 14:08) Hs C Reactive Protein (03/18/22 14:08) Us Venous Lower Ext Rt (03/18/22 14:08) Hydrocodone/Apap 5/325 Tablet (Lortab 5 (03/18/22 14:15) Medications Given in ED Current Medications Medications Dose Ordered Sig/Garret Route Start Time Stop Time Status Last Admin Dose Admin Acetaminophen/ Hydrocodone Bitart 1 ea ONCE ONCE PO 03/18/22 14:15 03/18/22 14:16 DC 03/18/22 14:38 1 EA Vital Signs/I&O 03/18/22 14:05 Temp 36.7 Pulse 88 Resp 18 B/P (MAP) 147/92 (110) Pulse Ox 97 Blood Pressure Mean: 110 Departure Communication (Admissions) NAME: CARIDAD TEJADA [facility] REC#: [id number] PT STATUS: REG ER : 1990 PHYSICIAN: EVA GAMINO APRN ADMIT DATE: 03/18/22/ER Signed Date of Exam:03/18/22 US VENOUS LOWER EXT RT EXAMINATION: US Right Lower Extremity Venous Duplex. TECHNIQUE: Multiple real-time grayscale images were obtained over the right lower extremity in various projections. Additional spectral analysis and color Doppler duplex images were also obtained. HISTORY: Right leg pain. COMPARISON: 01/11/2021. FINDINGS: Right: There is partial occlusion of the distal superficial femoral vein and popliteal vein. Normal augmentation, flow, compressibility seen within the right common femoral, greater saphenous, peroneal, and posterior tibial veins. IMPRESSION: 1. Partially occlusive thrombus within the superficial femoral and popliteal veins. Findings were communicated to Eva Gamino by the system technologist at the time of exam. Dictated by: Dictated on workstation # [id number] Dict: 03/18/22 1448 Trans: 03/18/22 1500 AS6 [id number] Interpreted by: UQEENIE GOODSON DO Electronically signed by: QUEENIE GOODSON DO 03/18/22 1500 Impression Primary Impression: Right leg pain Additional Impression: Right leg DVT Disposition: 01 HOME, SELF-CARE Condition: Stable Departure-Patient Inst. Decision time for Depature: 15:18 Referrals: LYNNE JAMISON MD (PCP/Family) Primary Care Physician Patient Instructions: Deep Vein Thrombosis (Blood Clots in the Legs) Scripts Hydrocodone/Acetaminophen (Hydrocodone-Acetamin 5-325 mg) 5 Mg-325 Mg Tablet 1 TAB PO Q4H PRN for PAIN-MODERATE (5-7), #14 TAB Prov: EVA GAMINO APRN 03/18/22 Work/School Note: Work Release Form Date Seen in the Emergency Department: Mar 18, 2022 Return to Work: Mar 20, 2022 EVA GAMINO APRN Mar 18, 2022 14:15
[2022-03-18 14:51] LABS: BASOPHILS % (AUTO) 1 % (0-10); EOSINOPHILS # (AUTO) 0.2 10^3/uL (0.0-0.3); EOSINOPHILS % (AUTO) 3 % (0-10); HEMATOCRIT 49 % (40-54); HEMOGLOBIN 16.6 g/dL (13.3-17.7); LYMPHOCYTES # (AUTO) 1.3 10^3/uL (1.0-4.0); LYMPHOCYTES % (AUTO) 20 % (12-44); MEAN CORPUSCULAR HEMOGLOBIN 31 pg (25-34); MEAN CORPUSCULAR HGB CONC 34 g/dL (32-36); MEAN CORPUSCULAR VOLUME 91 fL (80-99); MEAN PLATELET VOLUME 9.6 fL (9.0-12.2); MONOCYTES # (AUTO) 0.6 10^3/uL (0.0-1.0); MONOCYTES % (AUTO) 9 % (0-12); NEUTROPHILS # (AUTO) 4.4 10^3/uL (1.8-7.8); NEUTROPHILS % (AUTO) 67 % (42-75); PLATELET COUNT 189 10^3/uL (130-400); WHITE BLOOD COUNT 6.5 10^3/uL (4.3-11.0)
--- NOTE | 2022-03-18 14:54 | Diagnostic Imaging Report ---
EXAMINATION: US Right Lower Extremity Venous Duplex. TECHNIQUE: Multiple real-time grayscale images were obtained over the right lower extremity in various projections. Additional spectral analysis and color Doppler duplex images were also obtained. HISTORY: Right leg pain. COMPARISON: 01/11/2021. FINDINGS: Right: There is partial occlusion of the distal superficial femoral vein and popliteal vein. Normal augmentation, flow, compressibility seen within the right common femoral, greater saphenous, peroneal, and posterior tibial veins. IMPRESSION: 1. Partially occlusive thrombus within the superficial femoral and popliteal veins. Findings were communicated to Gonsalo Gamino by the research food technologist at the time of exam. Dictated by: Dictated on workstation # [id number]
[2022-03-18 14:59] LABS: ALBUMIN 4.7 GM/DL (3.2-4.5); CHLORIDE 100 MMOL/L (98-107); SODIUM 136 MMOL/L (135-145)
[2022-03-18 15:01] LABS: CALCIUM 9.7 MG/DL (8.5-10.1)
[2022-03-18 15:02] LABS: GLUCOSE 101 MG/DL (70-105); TOTAL PROTEIN 7.8 GM/DL (6.4-8.2)
[2022-03-18 15:03] LABS: CARBON DIOXIDE 22 MMOL/L (21-32)
[2022-03-18 15:04] LABS: BILIRUBIN,TOTAL 1.2 MG/DL (0.1-1.0)
[2022-03-18 15:05] LABS: ALKALINE PHOSPHATASE 116 U/L (40-136); CREATININE SERUM 1.07 MG/DL (0.60-1.30); GFR ESTIMATED 95
[2022-03-18 15:07] LABS: BUN/CREATININE RATIO 10
[2022-03-18 15:08] LABS: ALANINE AMINOTRANSFERASE 77 U/L (0-55)
[2022-03-18] MEDS ORDERED: ACHD5005 PO (15:18)
[2022-03-18 15:35] VITALS: BP 135/88
== END 2022-03-18 15:35 | disposition home or self-care (01) ==
LOC: EDUNIT# 12:24 → ER 12:25
DX: I82.4Y1 Acute embolism and thrombosis of unspecified deep veins of right proximal lower extremity (principal); F17.210 Nicotine dependence, cigarettes, uncomplicated; Z79.01 Long term (current) use of anticoagulants
CPT/HCPCS: 36415; 80053; 85025; 86141

== ENCOUNTER 2022-05-06 13:09 | Outpatient (RCR) | payer SELFPAY | END 2022-05-29 | disposition home or self-care (01) | LOC: ONC 13:09 | PROVIDERS: ATTEND Internal Medicine Hematology & Oncology | DX: I82.409 Acute embolism and thrombosis of unspecified deep veins of unspecified lower extremity (principal) | CPT/HCPCS: 99214 ==

== ENCOUNTER 2022-09-26 11:30 | Emergency (ER) | payer SELFPAY ==
[~2022-09-26] VITALS: Ht 175.3 cm; Wt 97.5 kg
[2022-09-26] MEDS ORDERED: ACHD5005 PO ×2 (12:44→15:04)
[2022-09-26] MEDS ORDERED: HYDROcodone/APAP 5 MG/325 MG (LORTAB) TAB PO ONE (12:45)
--- NOTE | 2022-09-26 12:45 | ED Lower Extremity ---
General Chief Complaint: Lower Extremity Stated Complaint: PAIN IN LEGS Source: patient Exam Limitations: no limitations History of Present Illness Date Seen by Provider: Sep 26, 2022 Time Seen by Provider: 12:41 Initial Comments To ER with pain in right lower extremity. He has known DVT in right lower extremity and is on Xarelto. However he was on a trip recently and forgot his Xarelto. He was without it for 2 days. He restarted it this morning. Does not have any chest pain or shortness of breath. Onset: just prior to arrival Severity: moderate Pain/Injury Location: right leg Method of Injury: unknown Modifying Factors: Worse With Movement Allergies and Home Medications Allergies Coded Allergies: ibuprofen (Unverified Allergy, Unknown, 04/30/15) Patient Home Medication List Home Medication List Reviewed: Yes Apixaban (Eliquis) 5 Mg Tablet, 5 MG PO BID Prescribed by: TASH ALEXANDRE on 01/11/21 1643 Hydrocodone/Acetaminophen (Hydrocodone-Acetamin 5-325 mg) 1 Each Tablet, 1 TAB PO Q6H PRN for PAIN-MODERATE (5-7) Prescribed by: TASH ALEXANDRE on 01/11/21 164 Hydrocodone/Acetaminophen (Hydrocodone-Acetamin 5-325 mg) 1 Each Tablet, 1 TAB PO Q6H PRN for PAIN-MODERATE (5-7) Prescribed by: TASH ALEXANDRE on 05/31/21 2019 Hydrocodone/Acetaminophen (Hydrocodone-Acetamin 5-325 mg) 5 Mg-325 Mg Tablet, 1 TAB PO Q4H PRN for PAIN-MODERATE (5-7) Prescribed by: EVA KRUGER on 03/18/22 1519 Rivaroxaban (Xarelto Starter Pack) 1 Each Tab.ds.pk, 1 EACH PO UD Prescribed by: JODY RAZA on 07/10/20 0953 Trazodone HCl (Trazodone HCl) 100 Mg Tablet, 100-200 MG PO HS, (Reported) Entered as Reported by: PUSHPA OWUSU on 07/04/20 1553 Review of Systems Constitutional: see HPI EENTM: see HPI Respiratory: no symptoms reported Cardiovascular: no symptoms reported Genitourinary: no symptoms reported Musculoskeletal: no symptoms reported Skin: no symptoms reported Psychiatric/Neurological: No Symptoms Reported Past Vhwmojg-Pxonhw-Hgtepe Hx Immunizations Up To Date Tetanus Booster (TDap): Unknown PED Vaccines UTD: Yes Seasonal Allergies Seasonal Allergies: No Past Medical History Surgeries: Yes (R WRIST) Orthopedic Respiratory: No Cardiac: Yes Deep Vein Thrombosis Neurological: No Genitourinary: No Gastrointestinal: No Musculoskeletal: No Endocrine: No HEENT: No Cancer: No Psychosocial: Yes Bipolar Integumentary: No Blood Disorders: No Adverse Reaction/Blood Tranf: No Family Medical History Alcoholism 19 FATHER 19 MOTHER Arthritis Asthma 19 MOTHER Cardiovascular disease 19 FATHER 19 MOTHER Coronary thrombosis 19 FATHER 19 MOTHER Hypertension 19 FATHER Parkinson's disease 19 FATHER 19 MOTHER Respiratory disorder 19 MOTHER Seizure disorder Severe allergy G8 BROTHER Visual disorder 19 MOTHER No Pertinent Family Hx Physical Exam Vital Signs Capillary Refill : Height, Weight, BMI Height: 5'10" Weight: 190lbs. oz. 86.155927uo; 32.00 BMI Method:Stated General Appearance: WD/WN, no apparent distress HEENT: PERRL/EOMI, normal ENT inspection Neck: non-tender, full range of motion Respiratory: no respiratory distress, no accessory muscle use Hips: bilateral hip non-tender, bilateral hip normal inspection, bilateral hip normal range of motion Legs: bilateral leg non-tender, bilateral leg normal inspection; right leg other (Distended veins on the right lower extremity superficial in nature. No erythema there is swelling. Chronic brownish discoloration of bilateral lower extremities. Strong dorsalis pedis pulse.) Knees: bilateral knee non-tender, bilateral knee normal inspection, bilateral knee normal range of motion Ankles: bilateral ankle non-tender, bilateral ankle normal inspection, bilateral ankle no evidence of injury Feet: bilateral foot non-tender Neurologic/Psychiatric: alert, normal mood/affect, oriented x 3 Skin: normal color, warm/dry Departure Communication (Admissions) Provide any meaningful data. We will give him a prescription for some hydrocodone and have him elevate the leg. Impression Primary Impression: Right leg DVT Disposition: 01 HOME, SELF-CARE Condition: Stable Departure-Patient Inst. Decision time for Depature: 12:43 Referrals: LYNNE JAMISON MD (PCP/Family) Primary Care Physician Patient Instructions: Deep Vein Thrombosis (DVT) ED Add. Discharge Instructions: Elevate the leg is much as possible. Return to ER for any concerns. All discharge instructions reviewed with patient and/or family. Voiced understanding. Scripts Hydrocodone/Acetaminophen (Hydrocodone-Acetamin 5-325 mg) 5 Mg-325 Mg Tablet 1 TAB PO Q4H PRN for PAIN-MODERATE (5-7), #14 TAB Prov: EVA KRUGER APRN 09/26/22 EVA KRUGER APRN Sep 26, 2022 12:45
[2022-09-26 12:56] VITALS: BP 135/77
== END 2022-09-26 12:58 | disposition home or self-care (01) ==
LOC: EDUNIT# 11:30 → ER 11:33
DX: I82.401 Acute embolism and thrombosis of unspecified deep veins of right lower extremity (principal); Z88.6 Allergy status to analgesic agent; Z79.01 Long term (current) use of anticoagulants

== ENCOUNTER 2023-05-20 09:04 | Emergency (ER) | payer SELFPAY ==
[~2023-05-20] VITALS: Ht 175 cm; Wt 102.0 kg
--- NOTE | 2023-05-20 09:19 | ED General ---
General Stated Complaint: LEG PAIN History of Present Illness Date Seen by Provider: May 20, 2023 Time Seen by Provider: 09:19 Initial Comments 33-year-old male presents with chronic bilateral lower extremity pain. Patient has a history of known venous stasis with ulcers along with blood clotting disorder and history of DVTs. He is currently on a blood thinner. Patient presents today because of pain. Patient reports that he currently does not have a primary care provider. He does however report that he is currently taking his blood thinners. Allergies and Home Medications Allergies Coded Allergies: ibuprofen (Unverified Allergy, Unknown, 04/30/15) Patient Home Medication List Home Medication List Reviewed: Yes Apixaban (Eliquis) 5 Mg Tablet, 5 MG PO BID Prescribed by: TASH ALEXANDRE on 01/11/21 1643 Hydrocodone Bit/Acetaminophen (HYDROcodone/APAP 5 MG/325 MG TAB) 1 Tab Tab, 1 TAB PO Q4H PRN for PAIN-MODERATE (5-7) Prescribed by: SCARLETT YEUNG on 09/26/22 1505 Hydrocodone/Acetaminophen (Hydrocodone-Acetamin 5-325 mg) 1 Each Tablet, 1 TAB PO Q6H PRN for PAIN-MODERATE (5-7) Prescribed by: TASH ALEXANDRE on 01/11/21 1643 Hydrocodone/Acetaminophen (Hydrocodone-Acetamin 5-325 mg) 1 Each Tablet, 1 TAB PO Q6H PRN for PAIN-MODERATE (5-7) Prescribed by: TASH ALEXANDRE on 05/31/212018 Hydrocodone/Acetaminophen (Hydrocodone-Acetamin 5-325 mg) 5 Mg-325 Mg Tablet, 1 TAB PO Q4H PRN for PAIN-MODERATE (5-7) Prescribed by: EVA KRUGER on 03/18/22 1519 Hydrocodone/Acetaminophen (Hydrocodone-Acetamin 5-325 mg) 5 Mg-325 Mg Tablet, 1 TAB PO Q4H PRN for PAIN-MODERATE (5-7) Prescribed by: EVA KRUGER on 09/26/22 1244 Hydrocodone/Acetaminophen (Hydrocodone-Acetamin 5-325 mg) 5 Mg-325 Mg Tablet, 1 TAB PO Q8H PRN for PAIN-MODERATE (5-7) Prescribed by: RANDALL DOWNEY on 05/20/23 1047 Rivaroxaban (Xarelto Starter Pack) 1 Each Tab.ds.pk, 1 EACH PO UD Prescribed by: JODY RAZA on 07/10/20 0953 Trazodone HCl (Trazodone HCl) 100 Mg Tablet, 100-200 MG PO HS, (Reported) Entered as Reported by: PUSHPA OWUSU on 07/04/20 1553 Review of Systems Review of Systems Constitutional: see HPI EENTM: no symptoms reported Respiratory: no symptoms reported Cardiovascular: see HPI Gastrointestinal: see HPI Genitourinary: no symptoms reported Musculoskeletal: see HPI Skin: see HPI Past Lnzdlxq-Kchqtl-Ugziov Hx Immunizations Up To Date Tetanus Booster (TDap): Unknown PED Vaccines UTD: Yes Seasonal Allergies Seasonal Allergies: No Past Medical History Surgeries: Yes (R WRIST) Orthopedic Respiratory: No Cardiac: Yes Deep Vein Thrombosis Neurological: No Genitourinary: No Gastrointestinal: No Musculoskeletal: No Endocrine: No HEENT: No Cancer: No Psychosocial: Yes Bipolar Integumentary: No Blood Disorders: No Adverse Reaction/Blood Tranf: No Family Medical History Alcoholism 19 FATHER 19 MOTHER Arthritis Asthma 19 MOTHER Cardiovascular disease 19 FATHER 19 MOTHER Coronary thrombosis 19 FATHER 19 MOTHER Hypertension 19 FATHER Parkinson's disease 19 FATHER 19 MOTHER Respiratory disorder 19 MOTHER Seizure disorder Severe allergy G8 BROTHER Visual disorder 19 MOTHER No Pertinent Family Hx Physical Exam Vital Signs Vital Signs - First Documented 05/20/23 09:15 Temp 36.5 Pulse 86 Resp 16 B/P (MAP) 119/78 (92) Pulse Ox 97 Capillary Refill : Height, Weight, BMI Height: 5'10" Weight: 190lbs. oz. [id number]; 31.00 BMI Method:Stated General Appearance: No Apparent Distress, WD/WN Respiratory: Lungs Clear, Normal Breath Sounds Cardiovascular: Regular Rate, Rhythm, No Edema Extremity: Swelling, Other (Bilateral lower foot tenderness) Neurologic/Psychiatric: Alert, Oriented x3 Skin: Other (Bilateral lower extremity chronic venous stasis color changes with chronic ulcer right lower leg) Progress/Results/Core Measures Suspected Sepsis SIRS Temperature: Pulse: Respiratory Rate: Blood Pressure / Mean: Results/Orders My Orders Orders - RANDALL DOWNEY DO Us Venous Lower Ext Lizandro (05/20/23 09:24) Hydrocodone/Apap 5/325 Tablet (Lortab 5 (05/20/23 09:30) Medications Given in ED Current Medications Medications Dose Ordered Sig/Garret Route Start Time Stop Time Status Last Admin Dose Admin Acetaminophen/ Hydrocodone Bitart 1 ea ONCE ONCE PO 05/20/23 09:30 05/20/23 09:31 DC 05/20/23 09:36 1 EA Vital Signs/I&O 05/20/23 05/20/23 09:15 10:58 Temp 36.5 Pulse 86 78 Resp 16 14 B/P (MAP) 119/78 (92) 116/68 Pulse Ox 97 97 Capillary Refill : Progress Note : Progress Note Patient has bilateral venous Doppler negative for DVTs. Patient's pain is likely chronic and related to his chronic venous stasis. He also has chronic venous stasis ulcers. Discussed with him the need to follow-up with his primary care providers for outpatient long-term management. Patient was provided pain control for couple days recommend that he continue wearing Tarun wrap's or compression stockings. That he follows up for long-term wound management with [facility]. Patient should also follow-up with them as needed for pain control. He is stable and discharged home. Patient is at increased risk for morbidity and mortality due to his social determinants of health Departure Impression Primary Impression: Chronic venous stasis dermatitis of both lower extremities Additional Impression: Chronic cutaneous venous stasis ulcer Disposition: HOME, SELF-CARE Condition: Stable Departure-Patient Inst. Referrals: [facility] (PCP/Family) Primary Care Physician Patient Instructions: Dependent Edema (DC), How to Put On and Take Off Compression Stockings, Pressure sores Add. Discharge Instructions: Please call [facility] upon discharge arrange for an appointment for long- term follow-up Scripts Hydrocodone/Acetaminophen (Hydrocodone-Acetamin 5-325 mg) 5 Mg-325 Mg Tablet 1 TAB PO Q8H PRN for PAIN-MODERATE (5-7), #5 TAB Prov: RANDALL DOWNEY DO 05/20/23 Work/School Note: Work Release Form Return to Work: May 22, 2023 RANDALL DOWNEY DO May 20, 2023 09:19
[2023-05-20] MEDS ORDERED: HYDROcodone/APAP 5 MG/325 MG (LORTAB) TAB PO ONE (09:30)
[2023-05-20] MEDS ORDERED: ACHD5005 PO (10:46)
--- NOTE | 2023-05-20 10:51 | Diagnostic Imaging Report ---
PROCEDURE: US Venous Lower Ext Lizandro. TECHNIQUE: Multiple real-time grayscale images were obtained over the lower extremities in various projections, bilaterally. Additional duplex Doppler and color Doppler images were also obtained. INDICATION: Bilateral leg pain EXAMINATIONS: Both grayscale and color Doppler imaging of the deep veins of the upper extremities were performed with waveform analysis. FINDINGS: There is no intraluminal filling defect. Normal continuous flow is seen throughout the deep venous systems of both upper extremities, and there is normal response to augmentation. The deep veins compress normally. IMPRESSION: No ultrasound evidence of deep venous thrombosis in either upper extremity. Dictated by: Dictated on workstation # [id number]
[2023-05-20 10:58] VITALS: BP 116/68
== END 2023-05-20 10:58 | disposition home or self-care (01) ==
LOC: EDUNIT# 09:04 → ER 09:07
DX: I83.218 Varicose veins of right lower extremity with both ulcer of other part of lower extremity and inflammation (principal); I83.12 Varicose veins of left lower extremity with inflammation; Z86.718 Personal history of other venous thrombosis and embolism; Z79.01 Long term (current) use of anticoagulants; Z88.6 Allergy status to analgesic agent
CPT/HCPCS: 93970

== ENCOUNTER 2023-10-07 09:05 | Emergency (ER) | payer OTHER ==
[~2023-10-07] VITALS: Ht 175.2 cm; Wt 99.7 kg
[2023-10-07] MEDS ORDERED: morphine INJ 10 MG/ML 1ML (SYR OR VIAL) IVP STA (09:18)
--- NOTE | 2023-10-07 09:22 | ED Lower Extremity ---
General Chief Complaint: Lower Extremity Stated Complaint: UNABLE TO WALK | LT LEG PAIN Source: patient Exam Limitations: no limitations History of Present Illness Date Seen by Provider: Oct 07, 2023 Time Seen by Provider: 09:07 Initial Comments 33-year-old male with past medical history of DVT/PE on Xarelto coming in due to left calf pain and mild dyspnea with chest discomfort. The calf pain started 2 days ago, dyspnea started yesterday. He takes his Xarelto daily, maybe missed 1 dose of it this week. He has never been diagnosed with a new DVT while on the Xarelto. Last time he was diagnosed with a DVT, it was because he was out of his Xarelto prescription and had not been taking it. He has seen a specialist in [place], and he has been told he gets DVTs because of abnormal "reflux in his veins". He has a scheduled appointment for some procedure in his legs in the near future to hopefully help with this. Otherwise denies any cough, fever, abdominal pain, nausea, vomiting, weakness, numbness, or any other concerns. Allergies and Home Medications Allergies Coded Allergies: ibuprofen (Unverified Allergy, Unknown, 04/30/15) Patient Home Medication List Home Medication List Reviewed: Yes Apixaban (Eliquis) 5 Mg Tablet, 5 MG PO BID Prescribed by: TASH ALEXANDRE on 01/11/21 1643 Hydrocodone Bit/Acetaminophen (HYDROcodone/APAP 5 MG/325 MG TAB) 1 Tab Tab, 1 TAB PO Q4H PRN for PAIN-MODERATE (5-7) Prescribed by: SCARLETT YEUNG on 09/26/22 1505 Hydrocodone/Acetaminophen (Hydrocodone-Acetamin 5-325 mg) 1 Each Tablet, 1 TAB PO Q6H PRN for PAIN-MODERATE (5-7) Prescribed by: TASH ALEXANDRE on 01/11/21 1643 Hydrocodone/Acetaminophen (Hydrocodone-Acetamin 5-325 mg) 1 Each Tablet, 1 TAB PO Q6H PRN for PAIN-MODERATE (5-7) Prescribed by: TASH ALEXANDRE on 05/31/21 2019 Hydrocodone/Acetaminophen (Hydrocodone-Acetamin 5-325 mg) 5 Mg-325 Mg Tablet, 1 TAB PO Q4H PRN for PAIN-MODERATE (5-7) Prescribed by: EVA KRUGER on 03/18/22 1519 Hydrocodone/Acetaminophen (Hydrocodone-Acetamin 5-325 mg) 5 Mg-325 Mg Tablet, 1 TAB PO Q4H PRN for PAIN-MODERATE (5-7) Prescribed by: EVA KRUGER on 09/26/22 1244 Hydrocodone/Acetaminophen (Hydrocodone-Acetamin 5-325 mg) 5 Mg-325 Mg Tablet, 1 TAB PO Q8H PRN for PAIN-MODERATE (5-7) Prescribed by: RANDALL DOWNEY on 05/20/23 1047 Oxycodone HCl (Oxycodone HCl) 5 Mg Tablet, 5 MG PO Q6H PRN for PAIN-SEVERE (8- 10) Prescribed by: TAMI HAINES on 10/07/23 1114 Rivaroxaban (Xarelto Starter Pack) 1 Each Tab.ds.pk, 1 EACH PO UD Prescribed by: JODY RAZA on 07/10/20 0953 Trazodone HCl (Trazodone HCl) 100 Mg Tablet, 100-200 MG PO HS, (Reported) Entered as Reported by: PUSHPA OWUSU on 07/04/20 1553 Review of Systems Constitutional: No fever EENTM: no symptoms reported Respiratory: see HPI Cardiovascular: see HPI Gastrointestinal: no symptoms reported Genitourinary: no symptoms reported Musculoskeletal: see HPI Skin: no symptoms reported Psychiatric/Neurological: No Symptoms Reported All Other Systems Reviewed Negative Unless Noted: Yes Past Jgppwjj-Qieqoz-Sbqees Hx Patient Social History Tobacco Use?: Yes Tobacco type used: Cigarettes Substance use?: Yes Substance type: Marijuana Alcohol Use?: No Immunizations Up To Date Tetanus Booster (TDap): Unknown PED Vaccines UTD: Yes Seasonal Allergies Seasonal Allergies: No Past Medical History Surgery/Hospitalization HX: R HAND SURG, DVT BILAT AND PE. CHRONIC LOWER EXT PAIN Surgeries: Yes (R WRIST) Orthopedic Respiratory: No Cardiac: Yes Deep Vein Thrombosis Neurological: No Genitourinary: No Gastrointestinal: No Musculoskeletal: No Endocrine: No HEENT: No Cancer: No Psychosocial: Yes Bipolar Integumentary: No Blood Disorders: No Adverse Reaction/Blood Tranf: No Family Medical History Alcoholism 19 FATHER 19 MOTHER Arthritis Asthma 19 MOTHER Cardiovascular disease 19 FATHER 19 MOTHER Coronary thrombosis 19 FATHER 19 MOTHER Hypertension 19 FATHER Parkinson's disease 19 FATHER 19 MOTHER Respiratory disorder 19 MOTHER Seizure disorder Severe allergy G8 BROTHER Visual disorder 19 MOTHER No Pertinent Family Hx Physical Exam Vital Signs Vital Signs - First Documented 10/07/23 09:12 Temp 37.5 Pulse 86 B/P (MAP) 132/92 (105) Pulse Ox 98 O2 Delivery Room Air Capillary Refill : Height, Weight, BMI Height: 5'10" Weight: 190lbs. oz. 86.863115pu; 33.00 BMI Method:Stated General Appearance: WD/WN, no apparent distress HEENT: PERRL/EOMI, normal ENT inspection, pharynx normal Neck: non-tender, full range of motion, supple, normal inspection Cardiovascular: regular rate, rhythm, no edema, no murmur Respiratory: chest non-tender, lungs clear, normal breath sounds, no respiratory distress, no accessory muscle use Gastrointestinal: normal bowel sounds, non tender, soft; No distended, No guarding, No rebound Legs: left leg other (Left leg with calf tenderness, no significant swelling or edema, neurovascular intact otherwise) Neurologic/Tendon: normal sensation, normal motor functions, normal tendon functions Neurologic/Psychiatric: no motor/sensory deficits, alert, normal mood/affect Skin: normal color, warm/dry Progress/Results/Core Measures Results/Orders Lab Results Laboratory Tests Test 10/07/23 09:18 Range/Units White Blood Count 8.5 4.3-11.0 10^3/uL Red Blood Count 5.20 4.30-5.52 10^6/uL Hemoglobin 16.4 13.3-17.7 g/dL Hematocrit 48 40-54 % Mean Corpuscular Volume 93 80-99 fL Mean Corpuscular Hemoglobin 32 25-34 pg Mean Corpuscular Hemoglobin Concent 34 32-36 g/dL Red Cell Distribution Width 12.2 10.0-14.5 % Platelet Count 194 130-400 10^3/uL Mean Platelet Volume 9.3 9.0-12.2 fL Immature Granulocyte % (Auto) 1 % Neutrophils (%) (Auto) 67 42-75 % Lymphocytes (%) (Auto) 21 12-44 % Monocytes (%) (Auto) 7 0-12 % Eosinophils (%) (Auto) 4 0-10 % Basophils (%) (Auto) 0 0-10 % Neutrophils # (Auto) 5.7 1.8-7.8 10^3/uL Lymphocytes # (Auto) 1.8 1.0-4.0 10^3/uL Monocytes # (Auto) 0.6 0.0-1.0 10^3/uL Eosinophils # (Auto) 0.3 0.0-0.3 10^3/uL Basophils # (Auto) 0.0 0.0-0.1 10^3/uL Immature Granulocyte # (Auto) 0.0 0.0-0.1 10^3/uL Prothrombin Time 16.6 H 12.2-14.7 SEC INR Comment 1.3 0.8-1.4 Activated Partial Thromboplast Time 32 24-35 SEC D-Dimer 1.26 H 0.00-0.49 UG/ML Sodium Level 136 135-145 MMOL/L Potassium Level 3.8 3.6-5.0 MMOL/L Chloride Level 101 98-107 MMOL/L Carbon Dioxide Level 24 21-32 MMOL/L Anion Gap 11 5-14 MMOL/L Blood Urea Nitrogen 12 7-18 MG/DL Creatinine 1.10 0.60-1.30 MG/DL Estimat Glomerular Filtration Rate 90 BUN/Creatinine Ratio 11 Glucose Level 129 H 70-105 MG/DL Calcium Level 9.6 8.5-10.1 MG/DL Corrected Calcium 8.5-10.1 MG/DL Magnesium Level 1.9 1.6-2.4 MG/DL Total Bilirubin 0.5 0.1-1.0 MG/DL Aspartate Amino Transf (AST/SGOT) 26 5-34 U/L Alanine Aminotransferase (ALT/SGPT) 40 0-55 U/L Alkaline Phosphatase 110 40-136 U/L Troponin I < 0.028 <0.028 NG/ML B-Type Natriuretic Peptide 14.5 <100.0 PG/ML Total Protein 8.3 H 6.4-8.2 GM/DL Albumin 4.7 H 3.2-4.5 GM/DL Lipase 38 8-78 U/L My Orders Orders - TAMI HAINES MD [facility] [place] (10/07/23 09:18) Cbc And Automated Diff (10/07/23 09:18) Comprehensive Metabolic Panel (10/07/23 09:18) Fibrin Degradation Products (10/07/23 09:18) Lipase (10/07/23 09:18) Magnesium (10/07/23 09:18) Protime With Inr (10/07/23 09:18) Partial Thromboplastin Time (10/07/23 09:18) Troponin I Oskar (10/07/23 09:18) Ed Iv/Invasive Line Start (10/07/23 09:18) Ekg Tracing (10/07/23 09:18) Monitor-Rhythm Ecg Trace Only (10/07/23 09:18) Chest 1 View, Ap/Pa Only (10/07/23 09:18) Morphine Injection (Morphine Injection (10/07/23 09:18) Us Venous Lower Ext Lt (10/07/23 09:18) Hydrocodone/Apap 5/325 Tablet (Hydrocod (10/07/23 11:15) Medications Given in ED Current Medications Medications Dose Ordered Sig/Garret Route Start Time Stop Time Status Last Admin Dose Admin Acetaminophen/ Hydrocodone Bitart 1 ea ONCE ONCE PO 10/07/23 11:15 10/07/23 11:16 DC 10/07/23 11:28 1 EA Vital Signs/I&O 10/07/23 10/07/23 09:12 11:28 Temp 37.5 Pulse 86 76 B/P (MAP) 132/92 (105) 122/82 Pulse Ox 98 96 O2 Delivery Room Air Room Air Progress Progress Note : Progress Note 33 M male with above history coming in due to left leg pain. ABCs were intact and vitals present on presentation. Specifically, he is not tachycardic, and not hypoxic. From that standpoint, no clinical signs of a PE. An IV was placed and basic labs were obtained and were significant for normal hemoglobin, normal creatinine, slightly elevated D-dimer. He does have a history of blood clots. Ultrasound of the left lower extremity shows superficial venous thrombosis. He did miss a dose of his Xarelto, and in the past this has caused clotting. I will have him follow back up with his vascular surgeon. EKG ordered and interpreted by me showing normal sinus rhythm with no acute ischemic changes. Chest x-ray ordered interpreted by me showing no pneumonia or pneumothorax. I believe he is otherwise stable for discharge with outpatient follow-up. He was sent home with strict return precautions. Initial ECG Impression Date: Oct 07, 2023 Initial ECG Impression Time: 09:46 Initial ECG Rate: 81 Initial ECG Rhythm: Normal Sinus Comment Narrow QRS, normal axis, no significant ST changes or T wave abnormalities Diagnostic Imaging Diagonstic Imaging: Xray (chest) Comments [facility]. [place], [place] NAME: CARIDAD TEJADA [facility] REC#: [id number] PT STATUS: REG ER : 1990 PHYSICIAN: TAMI HAINES MD ADMIT DATE: 10/07/23/ER Draft Date of Exam:10/07/23 CHEST 1 VIEW, AP/PA ONLY INDICATION: Chest pain. COMPARISON: 04/30/2015. FINDINGS: The lungs are clear. There is no failure, effusion or pneumothorax. Healed deformity to the mid shaft of the right clavicle chronic. No acute chest wall pathology. No failure, effusion or pneumothorax. IMPRESSION: No acute appearing abnormality. Dictated on workstation # [id number] Dict: 10/07/23 1002 Trans: 10/07/23 1006 [id number] Interpreted by: PHUONG CHAUDHARY Electronically signed by: Departure Impression Primary Impression: Acute superficial venous thrombosis of left lower extremity Disposition: HOME, SELF-CARE Condition: Stable Departure-Patient Inst. Decision time for Depature: 11:10 Referrals: [facility] (PCP/Family) Primary Care Physician Patient Instructions: Superficial vein phlebitis and thrombosis Add. Discharge Instructions: You have a clot in one of the superficial veins in your leg. Fortunately this is not a DVT, and in regular people we do not treat this. Of course, we would want you to continue your blood thinner. Please follow back up with your vascular surgeon as well. Pain medicines were sent to your pharmacy. Scripts Oxycodone HCl (Oxycodone HCl) 5 Mg Tablet 5 MG PO Q6H PRN for PAIN-SEVERE (8-10) for 4 Days, #16 TAB Prov: TAMI HAINES MD 10/07/23 Work/School Note: Work Release Form Date Seen in the Emergency Department: Oct 07, 2023 Return to Work: Oct 08, 2023 Restrictions: No Restrictions TAMI HAINES MD Oct 07, 2023 09:22
[2023-10-07 09:25] LABS: BASOPHILS % (AUTO) 0 % (0-10); EOSINOPHILS # (AUTO) 0.3 10^3/uL (0.0-0.3); EOSINOPHILS % (AUTO) 4 % (0-10); HEMATOCRIT 48 % (40-54); HEMOGLOBIN 16.4 g/dL (13.3-17.7); LYMPHOCYTES # (AUTO) 1.8 10^3/uL (1.0-4.0); LYMPHOCYTES % (AUTO) 21 % (12-44); MEAN CORPUSCULAR HEMOGLOBIN 32 pg (25-34); MEAN CORPUSCULAR HGB CONC 34 g/dL (32-36); MEAN CORPUSCULAR VOLUME 93 fL (80-99); MEAN PLATELET VOLUME 9.3 fL (9.0-12.2); MONOCYTES # (AUTO) 0.6 10^3/uL (0.0-1.0); MONOCYTES % (AUTO) 7 % (0-12); NEUTROPHILS # (AUTO) 5.7 10^3/uL (1.8-7.8); NEUTROPHILS % (AUTO) 67 % (42-75); PLATELET COUNT 194 10^3/uL (130-400); WHITE BLOOD COUNT 8.5 10^3/uL (4.3-11.0)
[2023-10-07 09:36] LABS: ALBUMIN 4.7 GM/DL (3.2-4.5); CHLORIDE 101 MMOL/L (98-107); POTASSIUM 3.8 MMOL/L (3.6-5.0); SODIUM 136 MMOL/L (135-145)
[2023-10-07 09:37] LABS: CALCIUM 9.6 MG/DL (8.5-10.1); INR 1.3 (0.8-1.4); PROTHROMBIN TIME PATIENT 16.6 SEC (12.2-14.7)
[2023-10-07 09:38] LABS: GLUCOSE 129 MG/DL (70-105); TOTAL PROTEIN 8.3 GM/DL (6.4-8.2)
[2023-10-07 09:39] LABS: CARBON DIOXIDE 24 MMOL/L (21-32)
[2023-10-07 09:40] LABS: BILIRUBIN,TOTAL 0.5 MG/DL (0.1-1.0); FIBRIN DEGRADATION PRODUCTS 1.26 UG/ML (0.00-0.49)
[2023-10-07 09:42] LABS: ALKALINE PHOSPHATASE 110 U/L (40-136); GFR ESTIMATED 90
[2023-10-07 09:43] LABS: BUN/CREATININE RATIO 11
[2023-10-07 09:45] LABS: ALANINE AMINOTRANSFERASE 40 U/L (0-55); MAGNESIUM 1.9 MG/DL (1.6-2.4)
[2023-10-07 09:46] LABS: LIPASE 38 U/L (8-78)
--- NOTE | 2023-10-07 10:07 | Diagnostic Imaging Report ---
INDICATION: Chest pain. COMPARISON: 04/30/2015. FINDINGS: The lungs are clear. There is no failure, effusion or pneumothorax. Healed deformity to the mid shaft of the right clavicle chronic. No acute chest wall pathology. No failure, effusion or pneumothorax. IMPRESSION: No acute appearing abnormality. Dictated by: Dictated on workstation # [id number]
--- NOTE | 2023-10-07 10:53 | Diagnostic Imaging Report ---
PROCEDURE: US left lower extremity venous. TECHNIQUE: Multiple real-time grayscale images were obtained over the left lower extremity in various projections. Additional duplex Doppler and color Doppler images were also obtained. INDICATION: Left leg pain and swelling for three days. Patient does have a prior history of DVT. COMPARISON: Correlation is made with prior study from 05/20/2023. FINDINGS: Left common femoral, superficial femoral and popliteal veins are widely patent and show normal compressibility. There is partial thrombus identified in the peroneal vein proximally. There also appears to be some thrombus in the lesser saphenous vein at the popliteal fossa. No fluid collections are seen. IMPRESSION: No femoropopliteal DVT is detected. There is nonocclusive thrombus noted in the peroneal vein as well as the lesser saphenous vein. Dictated by: Dictated on workstation # [id number]
[2023-10-07] MEDS ORDERED: OXYC5TAB PO ×2 (11:14→12:08)
[2023-10-07] MEDS ORDERED: HYDROcodone/ACETAMINOPHEN 5 MG/325 MG TABLET PO ONE (11:15)
[2023-10-07 11:28] VITALS: BP 122/82
== END 2023-10-07 11:31 | disposition home or self-care (01) ==
LOC: EDUNIT# 09:05 → ER 09:08
DX: I82.812 Embolism and thrombosis of superficial veins of left lower extremity (principal); F17.210 Nicotine dependence, cigarettes, uncomplicated; Z79.01 Long term (current) use of anticoagulants
CPT/HCPCS: 36415; 71045; 80053; 83690; 83735; 83880; 84484; 85025; 85379; 85610; 85730; 93005; 93041; 96374

== ENCOUNTER 2023-10-24 10:25 | Emergency (ER) | payer OTHER ==
[~2023-10-24] VITALS: Ht 175 cm; Wt 99.7 kg
[~2023-10-24 10:25] MED LIST changes: +OXYC5TAB PO
--- NOTE | 2023-10-24 10:56 | ED Lower Extremity ---
General Chief Complaint: Lower Extremity Stated Complaint: POSSIBLE BLOOD CLOT Nursing Triage Note: PT ARRIVES TO ER VIA W/C. PT DX WITH L LEG DVT 3 WEEKS AGO. PT HAS A HX OF BLOOD CLOTS, TAKES XARELTO 20 MG. PT CONTINUING HIS BLOOD THINNER. PT REPORTS L LEG PAIN GOT SIGNIFICANTLY WORSE THIS PAST WEEK. DENIES SOB, REPORTS SOME CHILLS AND NAUSEA. Source: patient, family (mother) History of Present Illness Date Seen by Provider: Oct 24, 2023 Time Seen by Provider: 10:48 Initial Comments Patient is a 33-year-old male who presents to the emergency room with a chief complaint of increased pain and swelling to the left leg. He states he was diagnosed with a blood clot in the left calf 2 to 3 weeks ago. He states he is chronically anticoagulated on Xarelto and states that he takes this medication daily. He has had previous pulmonary embolism approximately 2 years ago. He has no definitive diagnosis of protein C&S deficiency or factor V Leiden disease. He follows with [facility]. He states he has had a couple of visits at the cancer center with Dr. Rapp here but does not know why he continues to have blood clots. He denies numbness tingling or weakness to the left leg states he has had increased pain that is preventing him from walking. He states shortly after the diagnosis 3 weeks ago he was able to walk with a cane but over the last week it has become too painful. The pain seems to be extending up into the medial thigh. He is concerned that the blood clot is getting bigger as opposed to smaller. He denies shortness of breath. He did have some nausea and dry heaving this morning. He states he feels a little short of breath with exertion. He does not take any other magnification other than the Xarelto. He does smoke cigarettes and marijuana. Denies daily alcohol use. Denies any other recreational drugs. No recent fevers, chills, productive cough. No abdominal pain, diarrhea, black or bloody stools. His mother states that his urine was quite dark this morning. He has been taking Tylenol for pain without relief of symptoms. Onset: last week Severity: severe Pain/Injury Location: left leg, left thigh Method of Injury: other (Blood clot) Modifying Factors: Worse With Jarring, Worse With Movement Allergies and Home Medications Allergies Coded Allergies: ibuprofen (Unverified Allergy, Unknown, 04/30/15) Patient Home Medication List Home Medication List Reviewed: Yes Apixaban (Eliquis) 5 Mg Tablet, 5 MG PO BID Prescribed by: TASH ALEXANDRE on 01/11/21 1643 Hydrocodone Bit/Acetaminophen (HYDROcodone/APAP 5 MG/325 MG TAB) 1 Tab Tab, 1 TAB PO Q4H PRN for PAIN-MODERATE (5-7) Prescribed by: SCARLETT YEUNG on 09/26/22 1505 Hydrocodone/Acetaminophen (Hydrocodone-Acetamin 5-325 mg) 1 Each Tablet, 1 TAB PO Q6H PRN for PAIN-MODERATE (5-7) Prescribed by: TASH ALEXANDRE on 01/11/21 1643 Hydrocodone/Acetaminophen (Hydrocodone-Acetamin 5-325 mg) 1 Each Tablet, 1 TAB PO Q6H PRN for PAIN-MODERATE (5-7) Prescribed by: TASH ALEXANDRE on 05/31/21 2019 Hydrocodone/Acetaminophen (Hydrocodone-Acetamin 5-325 mg) 5 Mg-325 Mg Tablet, 1 TAB PO Q4H PRN for PAIN-MODERATE (5-7) Prescribed by: EVA KRUGER on 03/18/22 1519 Hydrocodone/Acetaminophen (Hydrocodone-Acetamin 5-325 mg) 5 Mg-325 Mg Tablet, 1 TAB PO Q4H PRN for PAIN-MODERATE (5-7) Prescribed by: EVA KRUGER on 09/26/22 1244 Hydrocodone/Acetaminophen (Hydrocodone-Acetamin 5-325 mg) 5 Mg-325 Mg Tablet, 1 TAB PO Q8H PRN for PAIN-MODERATE (5-7) Prescribed by: RANDALL DOWNEY on 05/20/23 1047 Oxycodone HCl (Oxycodone HCl) 5 Mg Tablet, 5 MG PO Q6H PRN for PAIN-SEVERE (8- 10) Prescribed by: TAMI HAINES on 10/07/23 1208 Rivaroxaban (Xarelto Starter Pack) 1 Each Tab.ds.pk, 1 EACH PO UD Prescribed by: JODY RAZA on 07/10/20 0953 Trazodone HCl (Trazodone HCl) 100 Mg Tablet, 100-200 MG PO HS, (Reported) Entered as Reported by: PUSHPA OWUSU on 07/04/20 1553 Review of Systems Constitutional: see HPI EENTM: no symptoms reported Respiratory: short of breath Cardiovascular: no symptoms reported Gastrointestinal: nausea Genitourinary: other ("Dark urine") Musculoskeletal: other (Left leg pain) Skin: no symptoms reported Psychiatric/Neurological: Anxiety All Other Systems Reviewed Negative Unless Noted: Yes Past Thefvbf-Pfmled-Trmmzf Hx Patient Social History Tobacco Use?: Yes Tobacco type used: Cigarettes Smoking Status: Current Everyday Smoker Substance use?: Yes Substance type: Marijuana Alcohol Use?: No Pt feels they are or have been: No Immunizations Up To Date Tetanus Booster (TDap): Unknown PED Vaccines UTD: Yes First/Initial COVID19 Vaccinat: DENIES Seasonal Allergies Seasonal Allergies: No Past Medical History Surgery/Hospitalization HX: R HAND SURG, DVT BILAT AND PE. CHRONIC LOWER EXT PAIN Surgeries: Yes (R WRIST) Orthopedic Respiratory: No Cardiac: Yes Deep Vein Thrombosis Neurological: No Genitourinary: No Gastrointestinal: No Musculoskeletal: No Endocrine: No HEENT: No Cancer: No Psychosocial: Yes Bipolar Integumentary: No Blood Disorders: No Adverse Reaction/Blood Tranf: No Family Medical History Alcoholism 19 FATHER 19 MOTHER Arthritis Asthma 19 MOTHER Cardiovascular disease 19 FATHER 19 MOTHER Coronary thrombosis 19 FATHER 19 MOTHER Hypertension 19 FATHER Parkinson's disease 19 FATHER 19 MOTHER Respiratory disorder 19 MOTHER Seizure disorder Severe allergy G8 BROTHER Visual disorder 19 MOTHER No Pertinent Family Hx Physical Exam Vital Signs Vital Signs - First Documented 10/24/23 10:29 Temp 37.1 Pulse 105 Resp 18 B/P (MAP) 114/82 (93) Pulse Ox 98 O2 Delivery Room Air Capillary Refill : Height, Weight, BMI Height: 5'10" Weight: 190lbs. oz. 86.257233tl; 32.00 BMI Method:Stated General Appearance: WD/WN, mild distress (Due to pain) HEENT: PERRL/EOMI Neck: normal inspection Cardiovascular: tachycardia (95-100) Respiratory: lungs clear, normal breath sounds, no respiratory distress, no accessory muscle use Gastrointestinal: non tender, soft Legs: left leg soft tissue tenderness (Tenderness to palpation left posterior calf as well as left medial thigh, palpable cord left calf. 2+ dorsalis pedis pulse in the left foot, mild swelling of the left leg. No overlying erythema or increased warmth. No skin wounds. No evidence of cellulitis), left leg sw elling Ankles: left ankle normal inspection Feet: left foot normal inspection Neurologic/Tendon: normal sensation, normal motor functions Neurologic/Psychiatric: no motor/sensory deficits, alert, normal mood/affect, oriented x 3 Skin: normal color, warm/dry Progress/Results/Core Measures Results/Orders Lab Results Laboratory Tests Test 10/24/23 10:40 Range/Units White Blood Count 11.6 H 4.3-11.0 10^3/uL Red Blood Count 4.72 4.30-5.52 10^6/uL Hemoglobin 14.8 13.3-17.7 g/dL Hematocrit 43 40-54 % Mean Corpuscular Volume 92 80-99 fL Mean Corpuscular Hemoglobin 31 25-34 pg Mean Corpuscular Hemoglobin Concent 34 32-36 g/dL Red Cell Distribution Width 11.8 10.0-14.5 % Platelet Count 226 130-400 10^3/uL Mean Platelet Volume 9.7 9.0-12.2 fL Immature Granulocyte % (Auto) 0 % Neutrophils (%) (Auto) 72 42-75 % Lymphocytes (%) (Auto) 15 12-44 % Monocytes (%) (Auto) 12 0-12 % Eosinophils (%) (Auto) 0 0-10 % Basophils (%) (Auto) 0 0-10 % Neutrophils # (Auto) 8.3 H 1.8-7.8 10^3/uL Lymphocytes # (Auto) 1.7 1.0-4.0 10^3/uL Monocytes # (Auto) 1.4 H 0.0-1.0 10^3/uL Eosinophils # (Auto) 0.0 0.0-0.3 10^3/uL Basophils # (Auto) 0.0 0.0-0.1 10^3/uL Immature Granulocyte # (Auto) 0.0 0.0-0.1 10^3/uL Prothrombin Time 17.8 H 12.2-14.7 SEC INR Comment 1.4 0.8-1.4 Activated Partial Thromboplast Time 42 H 24-35 SEC Sodium Level 135 135-145 MMOL/L Potassium Level 3.8 3.6-5.0 MMOL/L Chloride Level 99 98-107 MMOL/L Carbon Dioxide Level 24 21-32 MMOL/L Anion Gap 12 5-14 MMOL/L Blood Urea Nitrogen 10 7-18 MG/DL Creatinine 0.92 0.60-1.30 MG/DL Estimat Glomerular Filtration Rate 112 BUN/Creatinine Ratio 11 Glucose Level 116 H 70-105 MG/DL Calcium Level 9.1 8.5-10.1 MG/DL Corrected Calcium 9.1 8.5-10.1 MG/DL Total Bilirubin 1.0 0.1-1.0 MG/DL Aspartate Amino Transf (AST/SGOT) 21 5-34 U/L Alanine Aminotransferase (ALT/SGPT) 24 0-55 U/L Alkaline Phosphatase 119 40-136 U/L Total Protein 7.7 6.4-8.2 GM/DL Albumin 4.0 3.2-4.5 GM/DL My Orders Orders - PIPER COTE MD Ed Iv/Invasive Line Start (10/24/23 10:56) Cbc And Automated Diff (10/24/23 10:56) Comprehensive Metabolic Panel (10/24/23 10:56) Protime With Inr (10/24/23 10:56) Partial Thromboplastin Time (10/24/23 10:56) Oxycodone/Apap 10/325mg Tablet (Oxycodon (10/24/23 11:00) Ondansetron Injection (Ondansetron Inj (10/24/23 11:00) Ct Angio Chest W (R/O Pe) (10/24/23 11:36) Iohexol Injection (Omnipaque 350 Mg/Ml 1 (10/24/23 11:45) Received Contrast (Hold Metformin- Contr (10/24/23 11:45) Ns (Ivpb) 100 Ml (Sodium Chloride 0.9% 1 (10/24/23 11:45) Medications Given in ED Current Medications Medications Dose Ordered Sig/Garret Route Start Time Stop Time Status Last Admin Dose Admin Iohexol 100 ml ONCE ONCE IV 10/24/23 11:45 10/24/23 11:46 DC 10/24/23 11:53 90 ML Ondansetron HCl 4 mg ONCE ONCE IVP 10/24/23 11:00 10/24/23 11:01 DC 10/24/23 11:00 4 MG Oxycodone/ Acetaminophen 1 tab ONCE ONCE PO 10/24/23 11:00 10/24/23 11:01 DC 11/25/23 11:12 1 TAB Sodium Chloride 100 ml ONCE ONCE IV 10/24/23 11:45 10/24/23 11:46 DC 10/24/23 11:53 70 ML Vital Signs/I&O 10/24/23 10/24/23 10:29 11:19 Temp 37.1 Pulse 105 89 Resp 18 12 B/P (MAP) 114/82 (93) 102/72 (82) Pulse Ox 98 95 O2 Delivery Room Air Room Air Blood Pressure Mean: 93 Progress Progress Note : Time: 12:12 Progress Note Patient seen and evaluated by me, evaluation today includes history and physical exam with CBC, comprehensive metabolic panel and coag profile. Patient also had CT angiography of the chest to rule out pulmonary embolism. Pertinent physical exam findings include well-developed well-nourished male in moderate distress due to leg pain. He has tenderness to palpation over the left lower extremity, calf with palpable cord and medial upper thigh. Distal pulses in the left lower extremity are 2+. He has mild edema in the leg. No overlying erythema or signs of cellulitis. Patient's heart is regular, slightly tachycardic at presentation heart rate 90-95. His blood pressure is good in the 120s over 80s. His room air oxygen saturations are 93/94%. No increased work of breathing or respiratory distress, lungs are clear. No focal neurologic deficits. Differential diagnosis includes advancing venous thromboembolism while anticoagulated, pulmonary embolism; musculoskeletal lower extremity pain, anxiety about health Patient's labs independently reviewed and interpreted by me. CBC is basically normal with a slightly elevated white blood cell count at 11.6. His comprehensive metabolic panel is all within normal limits. PT is elevated at 17.8, INR of 1.4, PTT of 42 consistent with history of anticoagulation on Xarelto. Decision was made for CT angiography to rule out pulmonary embolism based on prior history of clotting, mild increase shortness of breath (although likely due to anxiety), recent elevated D-dimer about 10 days ago on prior visit. Patient states that he has had clotting while on Xarelto in the past although on review of the medical record the patient has admitted to skipping doses of his Xarelto concurrent with having "new clot". Patient is a chronic active smoker, likely very heavy as he smells strongly of tobacco. I have encouraged him to quit smoking. His CT angiography was read by the radiologist as negative for pulmonary embolism. His heart rate has come down to the 80s. Blood pressure is 121/84. His sats are still 93 to 94%. He has no active wheezing but likely has some degree of COPD. Patient is encouraged to continue his Xarelto. He is encouraged to follow-up closely with his primary care physician. We do not have ultrasound capability this weekend secondary to the holiday therefore re-ultrasound of the left leg was not obtained. I do not think that he needs repeat ultrasound at this time. More likely pain management, encouragement to ambulate, encouragement to wear compression stockings. He has no evidence of cellulitis to the left lower extremity. No concerning findings for sepsis. All of these results have been communicated to the patient and his mother who is at the bedside. We will send him home with a small prescription of tramadol for pain. Return precautions provided in both verbal and written format. All questions are sought and answered. Patient is improved at discharge. Diagnostic Imaging Diagonstic Imaging: CT Plain Films/CT/US/NM/MRI: chest Comments NAME: CAR[facility]AD [facility] REC#: [id number] PT STATUS: REG ER : 1990 PHYSICIAN: PIPER COTE MD ADMIT DATE: 10/24/23/ER Draft Date of Exam:10/24/23 CT ANGIO CHEST W (R/O PE) INDICATION: Cough and dyspnea, left leg pain and swelling. TECHNIQUE: Contiguous axial images were obtained through the chest during the intravenous administration of contrast. MIP reconstructions were created and evaluated. COMPARISON: 07/04/2020. DISCUSSION: No pulmonary embolus identified. Pulmonary arteries are unremarkable. The thoracic aorta is normal in caliber and configuration. Normal heart size. No pleural or pericardial fluid. The visualized upper abdomen is unremarkable. No consolidation. Minimal atelectasis within the lung bases. No pulmonary lesion. No adenopathy. No osseous abnormality identified. IMPRESSION: 1. No pulmonary embolus or other acute abnormality within the chest. Dictated on workstation # [id number] Dict: 10/24/23 1200 Trans: 10/24/23 1206 [facility] [id number] Interpreted by: LYNNE JAUREGUI MD Electronically signed by: Departure Impression Primary Impression: Left thigh pain Additional Impression: History of venous thromboembolism Disposition: HOME, SELF-CARE Condition: Improved Departure-Patient Inst. Decision time for Depature: 12:13 Referrals: [facility] (PCP/Family) Primary Care Physician Patient Instructions: Taking medicines for blood clots Add. Discharge Instructions: You need to try and stay active, to increase your circulation which will help prevent swelling in your legs. Take your blood thinners daily as prescribed. Extra strength Tylenol 2 tablets every 6 hours as needed for pain. I have also given you a short course of pain medication. You can take this every 6 hours as needed for more intense pain. Wear compression stockings/socks daily Please call and follow-up with [facility] for further management of your clotting disorder. Return to the emergency department for any new, concerning or emergent complaints. Scripts Tramadol HCl (Tramadol HCl) 50 Mg Tablet 50 MG PO Q6H PRN for PAIN, #15 TAB 0 Refills Prov: PIPER COTE MD 10/24/23 Copy Copies To 1: LEIF COLEMAN KATHRYN M MD Oct 24, 2023 10:56
[2023-10-24] MEDS ORDERED: ONDANSETRON INJECTION 4 MG/2 ML (SDV) IVP ONE (11:00)
[2023-10-24] MEDS ORDERED: oxyCODONE/ACETAMINOPHEN 10/325MG TABLET PO ONE (11:00)
[2023-10-24 11:02] LABS: BASOPHILS % (AUTO) 0 % (0-10); EOSINOPHILS % (AUTO) 0 % (0-10); HEMATOCRIT 43 % (40-54); HEMOGLOBIN 14.8 g/dL (13.3-17.7); LYMPHOCYTES # (AUTO) 1.7 10^3/uL (1.0-4.0); LYMPHOCYTES % (AUTO) 15 % (12-44); MEAN CORPUSCULAR HEMOGLOBIN 31 pg (25-34); MEAN CORPUSCULAR HGB CONC 34 g/dL (32-36); MEAN CORPUSCULAR VOLUME 92 fL (80-99); MEAN PLATELET VOLUME 9.7 fL (9.0-12.2); MONOCYTES # (AUTO) 1.4 10^3/uL (0.0-1.0); MONOCYTES % (AUTO) 12 % (0-12); NEUTROPHILS # (AUTO) 8.3 10^3/uL (1.8-7.8); NEUTROPHILS % (AUTO) 72 % (42-75); PLATELET COUNT 226 10^3/uL (130-400); WHITE BLOOD COUNT 11.6 10^3/uL (4.3-11.0)
[2023-10-24 11:07] LABS: INR 1.4 (0.8-1.4); POTASSIUM 3.8 MMOL/L (3.6-5.0); PROTHROMBIN TIME PATIENT 17.8 SEC (12.2-14.7)
[2023-10-24 11:08] LABS: CALCIUM 9.1 MG/DL (8.5-10.1)
[2023-10-24 11:09] LABS: TOTAL PROTEIN 7.7 GM/DL (6.4-8.2)
[2023-10-24 11:13] LABS: CREATININE SERUM 0.92 MG/DL (0.60-1.30)
[2023-10-24] MEDS ORDERED: IOHEXOL 350 MG/ML 100 ML (OMNIPAQUE 350) VIAL IV ONE (11:45)
[2023-10-24] MEDS ORDERED: HOLD METFORMIN - RECEIVED CONTRAST 20 ML VIAL IV SCH (11:45)
[2023-10-24] MEDS ORDERED: NS 100 ML (IVPB) BAG IV ONE (11:45)
--- NOTE | 2023-10-24 12:07 | Diagnostic Imaging Report ---
INDICATION: Cough and dyspnea, left leg pain and swelling. TECHNIQUE: Contiguous axial images were obtained through the chest during the intravenous administration of contrast. MIP reconstructions were created and evaluated. COMPARISON: 07/04/2020. DISCUSSION: No pulmonary embolus identified. Pulmonary arteries are unremarkable. The thoracic aorta is normal in caliber and configuration. Normal heart size. No pleural or pericardial fluid. The visualized upper abdomen is unremarkable. No consolidation. Minimal atelectasis within the lung bases. No pulmonary lesion. No adenopathy. No osseous abnormality identified. IMPRESSION: 1. No pulmonary embolus or other acute abnormality within the chest. Dictated by: Dictated on workstation # [id number]
[2023-10-24] MEDS ORDERED: TRM50T PO (12:20)
[2023-10-24 12:32] VITALS: BP 115/80
== END 2023-10-24 12:32 | disposition home or self-care (01) ==
LOC: EDUNIT# 10:25 → ER 10:27
DX: M79.652 Pain in left thigh (principal); M79.89 Other specified soft tissue disorders; F17.210 Nicotine dependence, cigarettes, uncomplicated; Z86.718 Personal history of other venous thrombosis and embolism; Z79.01 Long term (current) use of anticoagulants
CPT/HCPCS: 36415; 71275; 80053; 85025; 85610; 85730